=== PATIENT | male | born 1960 | race Caucasian/White ===

== ENCOUNTER 2018-03-19 17:50 | Emergency (ER) | payer OTHER ==
[~2018-03-19] VITALS: Ht 165.1 cm; Wt 56.2 kg
[2018-03-19 18:13] VITALS: BP 107/61
[2018-03-19] MEDS ORDERED: IPRATROPIUM BROM 0.5 MG/2.5ML INH SOL NEB ONE (21:30)
[2018-03-19] MEDS ORDERED: ALBUTEROL SULF 2.5 MG/0.5ML(0.5%) NEB SOLN NEB ONE (21:30)
[2018-03-19] MEDS ORDERED: cefTRIAXone SOD 1,000 MG VL IM ONE (21:30)
== END 2018-03-19 22:38 | disposition home or self-care (01) ==
LOC: ER 17:53
DX: J18.9 Pneumonia, unspecified organism (principal); J44.9 Chronic obstructive pulmonary disease, unspecified; I50.9 Heart failure, unspecified; F17.210 Nicotine dependence, cigarettes, uncomplicated; F12.90 Cannabis use, unspecified, uncomplicated; F15.90 Other stimulant use, unspecified, uncomplicated
CPT/HCPCS: 71046; 94640; 96372; 99283; J0696; J7611; J7644

== ENCOUNTER 2019-09-13 19:47 | Emergency (ER) | payer OTHER ==
[~2019-09-13] VITALS: Ht 165.1 cm; Wt 59.0 kg
[2019-09-13 20:34] VITALS: BP 128/75
== END 2019-09-13 23:07 | disposition home or self-care (01) ==
LOC: ER 19:48
DX: S06.0X1A Concussion with loss of consciousness of 30 minutes or less, initial encounter (principal); V87.8XXA Person injured in other specified noncollision transport accidents involving motor vehicle (traffic), initial encounter; Y93.89 Activity, other specified; Y92.488 Other paved roadways as the place of occurrence of the external cause; Y99.8 Other external cause status
CPT/HCPCS: 70450; 72125

== ENCOUNTER 2020-10-13 10:33 | Emergency (ER) | payer OTHER ==
[~2020-10-13] VITALS: Ht 162.6 cm; Wt 54.4 kg
[2020-10-13 11:03] VITALS: BP 137/82
== END 2020-10-13 10:50 ==
LOC: ER 10:33
DX: F10.10 Alcohol abuse, uncomplicated (principal); J44.9 Chronic obstructive pulmonary disease, unspecified; F17.210 Nicotine dependence, cigarettes, uncomplicated; F12.10 Cannabis abuse, uncomplicated; F15.10 Other stimulant abuse, uncomplicated

== ENCOUNTER 2023-05-28 08:38 | Inpatient (IN) | payer OTHER ==
[~2023-05-28] VITALS: Ht 165.1 cm; Wt 48.1 kg
[2023-05-28] VITALS (8 sets, daily range): BP systolic 115–119; BP diastolic 51–65; PULSE 78–89; RESP 17–20; TEMP 97.6–98; O2SAT 96–99
[2023-05-28] MEDS: IPRATROPIUM BROM 0.5 MG/2.5ML INH SOL HHN ONE (09:20)
[2023-05-28] MEDS: ALBUTEROL SULF 2.5 MG/0.5ML(0.5%) NEB SOLN HHN ONE (09:20)
[2023-05-28 09:49] LABS: Basophils # (auto) 0 10 ^3/uL (0-0.2); Basophils % (auto) 0.6 % (0.0-2.0); Eosinophils # (auto) 0.1 10 ^3/uL (0-0.8); Eosinophils % (auto) 1.1 % (0.0-7.0); Hematocrit 42.3 % (41.0-53.0); Hemoglobin 14.2 g/dL (13.5-17.5); Lymphocytes # (auto) 1.1 10 ^3/uL (0.4-5.4); Lymphocytes % (auto) 13.9 % (10.0-50.0); Mean Corpuscular Hemoglobin 29.4 pg (28.0-32.0); Mean Corpuscular Hgb Conc. 33.6 g/dL (32.0-36.0); Mean Corpuscular Volume 87.3 fL (80.0-100.0); Monocytes # (auto) 0.8 10 ^3/uL (0-1.3); Monocytes % (auto) 9.5 % (0.0-12.0); Neutrophils # (auto) 6.1 10 ^3/uL (1.6-8.6); Neutrophils % (auto) 74.9 % (37.0-80.0); Red Blood Cells 4.84 10^6/uL (4.5-5.90); Red Cell Distribution Width 13.9 % (11.8-14.3); White Blood Cell 8.2 10^3/uL (4.4-10.8)
[2023-05-28 10:09] LABS: Alanine Aminotransferase 50 U/L (7-40); Albumin 4.1 g/dL (3.2-4.8); Alkaline Phosphatase 87 U/L (46-116); Anion Gap 1 (5-15); Aspartate Aminotransferase 38 U/L (13-40); BUN/Creatinine Ratio 14.9 (10.0-20.0); Bilirubin, Total 0.5 mg/dL (0.2-1.0); Blood Urea Nitrogen 14 mg/dL (9-23); Calcium 9.3 mg/dL (8.5-10.1); Carbon Dioxide 30 mmol/L (20-30); Chloride 102 mmol/L (98-107); Glucose 120 mg/dL (74-106); Potassium 4.4 mmol/L (3.5-5.1); Sodium 133 mmol/L (136-145); Total Protein 6.8 g/dL (5.7-8.2)
[2023-05-28 11:24] LABS: COVID19 ANTIGEN SOFIA FIA NEGATIVE (NEGATIVE)
[2023-05-28] MEDS: methylPREDNISolone SOD SUCC 125 MG/2 ML VL IV ONE (11:45)
[2023-05-28] MEDS ORDERED: ACETAMINOPHEN 325 MG TAB PO PRN (12:00)
[2023-05-28] MEDS: PANTOPRAZOLE 40 MG/10 ML VIAL INJ IV SCH (12:00)
[2023-05-28] MEDS: methylPREDNISolone SOD SUCC 125 MG/2 ML VL IV SCH (12:00)
[2023-05-28] MEDS ORDERED: HYDROmorphone HCL 2 MG/ML VL/or syr IV PRN (12:00)
[2023-05-28] MEDS ORDERED: HYDROcodone-ACET 5/325MG TAB PO PRN (12:00)
[2023-05-28] MEDS ORDERED: DOCUSATE SOD 100 MG CAP PO PRN (12:00)
[2023-05-28 12:12] LABS: Amphetamine Screen, Urine Pos (NEGATIVE)
[2023-05-28 12:13] LABS: Base Excess 1.2 mmol/L (-2.0-2.0)
[2023-05-28 12:14] LABS: Barbiturate Scree,Urine Neg (NEGATIVE); Benzodiazephine Screen, Urine Neg (NEGATIVE); Cannabinoid Screen, Urine Neg (NEGATIVE); Cocaine Screen, Urine Neg (NEGATIVE); Opiate Scree,Urine Neg (NEGATIVE); Phencyclidine Screen, Urine Neg (NEGATIVE)
[2023-05-28] MEDS: SODIUM CHLOR 0.9% PF (SALINE LOCK) 10ML VIAL/SYR IV SCH (14:00)
[2023-05-28] MEDS: ALBUTEROL SULF 2.5 MG/0.5ML(0.5%) NEB SOLN NEB SCH (19:36)
[2023-05-28] MEDS: IPRATROPIUM BROM 0.5 MG/2.5ML INH SOL NEB SCH (19:36)
[2023-05-29] VITALS (13 sets, daily range): BP systolic 103–109; BP diastolic 56–81; PULSE 65–96; RESP 17–20; TEMP 97.9–98.2; O2SAT 93–100
[2023-05-29] MEDS: ENOXAPARIN SOD 40 MG/0.4 ML SYRINGE SC SCH (09:04)
[2023-05-30] VITALS (11 sets, daily range): BP systolic 93–136; BP diastolic 51–70; PULSE 60–87; RESP 16–20; TEMP 97.7–98.4; O2SAT 95–100
[2023-05-30 08:13] LABS: Hepatitis B Surface Antigen Negative (Negative)
[2023-05-30 09:33] LABS: Hepatitis C Antibody Reactive (Negative)
[2023-05-30] MEDS: cefTRIAXone 1GM/50ML D5W 50 ML IV SCH (13:48)
[2023-05-30] MEDS: AZITHROMYCIN 500MG/ 250ML 250 ML IV SCH (15:04)
[2023-05-31] VITALS (10 sets, daily range): BP systolic 98–120; BP diastolic 57–62; PULSE 59–75; RESP 16–20; TEMP 98–98.9; O2SAT 96–100
[2023-06-01] VITALS (11 sets, daily range): BP systolic 102–150; BP diastolic 55–85; PULSE 47–73; RESP 16–74; TEMP 36.7; O2SAT 92–100
[2023-06-01 06:06] LABS: Basophils # (auto) 0 10 ^3/uL (0-0.2); Basophils % (auto) 0.1 % (0.0-2.0); Eosinophils # (auto) 0 10 ^3/uL (0-0.8); Hematocrit 39.8 % (41.0-53.0); Hemoglobin 13.3 g/dL (13.5-17.5); Lymphocytes # (auto) 0.6 10 ^3/uL (0.4-5.4); Lymphocytes % (auto) 5.5 % (10.0-50.0); Mean Corpuscular Hgb Conc. 33.3 g/dL (32.0-36.0); Mean Corpuscular Volume 87.2 fL (80.0-100.0); Monocytes # (auto) 0.1 10 ^3/uL (0-1.3); Monocytes % (auto) 1.3 % (0.0-12.0); Neutrophils % (auto) 93.1 % (37.0-80.0); Red Blood Cells 4.57 10^6/uL (4.5-5.90); Red Cell Distribution Width 13.4 % (11.8-14.3); White Blood Cell 10.7 10^3/uL (4.4-10.8)
[2023-06-01 06:23] LABS: Alanine Aminotransferase 39 U/L (7-40); Albumin 3.2 g/dL (3.2-4.8); Alkaline Phosphatase 82 U/L (46-116); Anion Gap 5 (5-15); Aspartate Aminotransferase 15 U/L (13-40); BUN/Creatinine Ratio 23.8 (10.0-20.0); Blood Urea Nitrogen 25 mg/dL (9-23); Calcium 8.1 mg/dL (8.7-10.4); Carbon Dioxide 28 mmol/L (20-30); Chloride 103 mmol/L (98-107); Glucose 161 mg/dL (74-106); Potassium 4.3 mmol/L (3.5-5.1); Sodium 136 mmol/L (136-145)
[2023-06-01 06:24] LABS: Bilirubin, Total 0.2 mg/dL (0.2-1.0); Total Protein 5.6 g/dL (5.7-8.2)
[2023-06-01] MEDS: ONDANSETRON HCL 4 MG/2 ML VIAL IV PRN (13:01)
[2023-06-01] MEDS: CALCIUM GLUC 1,000mg/50ml-NS 50 ML IV SCH (16:15)
[2023-06-02] VITALS (9 sets, daily range): BP systolic 108–130; BP diastolic 55–69; PULSE 55–90; RESP 16–22; TEMP 97.5–98.6; O2SAT 92–100
[2023-06-02 06:24] LABS: Basophils # (auto) 0 10 ^3/uL (0-0.2); Basophils % (auto) 0.1 % (0.0-2.0); Eosinophils # (auto) 0 10 ^3/uL (0-0.8); Hematocrit 39.1 % (41.0-53.0); Hemoglobin 13.2 g/dL (13.5-17.5); Lymphocytes # (auto) 1.3 10 ^3/uL (0.4-5.4); Lymphocytes % (auto) 12.3 % (10.0-50.0); Mean Corpuscular Hemoglobin 29.1 pg (28.0-32.0); Mean Corpuscular Hgb Conc. 33.7 g/dL (32.0-36.0); Mean Corpuscular Volume 86.4 fL (80.0-100.0); Monocytes # (auto) 0.5 10 ^3/uL (0-1.3); Monocytes % (auto) 4.8 % (0.0-12.0); Neutrophils # (auto) 8.7 10 ^3/uL (1.6-8.6); Neutrophils % (auto) 82.8 % (37.0-80.0); Red Blood Cells 4.53 10^6/uL (4.5-5.90); Red Cell Distribution Width 13.5 % (11.8-14.3); White Blood Cell 10.5 10^3/uL (4.4-10.8)
[2023-06-02 06:40] LABS: Alanine Aminotransferase 32 U/L (7-40); Alkaline Phosphatase 99 U/L (46-116); Anion Gap 5 (5-15); Aspartate Aminotransferase 11 U/L (13-40); BUN/Creatinine Ratio 28.4 (10.0-20.0); Blood Urea Nitrogen 27 mg/dL (9-23); Calcium 8.1 mg/dL (8.7-10.4); Carbon Dioxide 29 mmol/L (20-30); Chloride 102 mmol/L (98-107); Glucose 121 mg/dL (74-106); Sodium 136 mmol/L (136-145)
[2023-06-02 06:41] LABS: Bilirubin, Total 0.2 mg/dL (0.2-1.0); Total Protein 5.2 g/dL (5.7-8.2)
[2023-06-02] MEDS: CALCIUM GLUC 1,000mg/50ml-NS 50 ML IV SCH (10:00)
[2023-06-03] VITALS (8 sets, daily range): BP systolic 123–142; BP diastolic 55–77; PULSE 48–97; RESP 18; TEMP 97.6–97.8; O2SAT 96–100
[2023-06-03] MEDS ORDERED: AZITTAB PO (12:05)
[2023-06-03] MEDS ORDERED: METH4PAK PO (12:05)
[2023-06-03] MEDS ORDERED: ALBUAER3 IN (12:05)
== END 2023-06-03 13:50 | disposition home or self-care (01) | DRG 140 ==
LOC: ER 08:38 → OVERFLOW 12:00 → WEST WING 18:19
PROVIDERS: ADMIT Internal Medicine; ATTEND Internal Medicine Geriatric Medicine
DX: J44.1 Chronic obstructive pulmonary disease with (acute) exacerbation (principal); J96.21 Acute and chronic respiratory failure with hypoxia; I50.9 Heart failure, unspecified; F15.10 Other stimulant abuse, uncomplicated; F17.210 Nicotine dependence, cigarettes, uncomplicated; Z20.822 Contact with and (suspected) exposure to COVID-19
CPT/HCPCS: 36415; 36600; 71046; 80053; 80307; 82805; 83880; 85025; 86803; 87340; 87426; 93005; 94640; 94644; 96374; 99291; C9113; G0378; J2405

== ENCOUNTER 2024-08-03 20:06 | Inpatient (IN) | payer OTHER ==
[~2024-08-03] VITALS: Ht 165.1 cm; Wt 53.0 kg
[~2024-08-03 20:06] MED LIST: ALBUAER3 IN; AZITTAB PO; METH4PAK PO
--- NOTE | 2024-08-03 20:37 | ED.PDOC ---
SOB-HPI HPI Comments 64 y/o M is [id number] sister for c/o shortness of breath for the last three days. Patient also states having yellow diarrhea for the last four days. Patient appears homeless however his sister says he is not. Patient uses tobacco. Sister states that he appears to be somewhat slightly confused in the last few days and weak. He does not live with her. Patient and sister are poor historians. Vitals upon ED arrival: temperature of 98.8F, pulse rate of 83, respiratory rate of 19, blood pressure of 117/61, and a SpO2 of 93%RA Past medical history: CHF, COPD, Sepsis, PNA, TBI, Hypodontia Past surgical history: partial colectomy for bowel obstruction + colostomy and reversal HPI: Poor Historian. REVIEW OF SYSTEMS: CONSTITUTIONAL: Denies acute: fever, diaphoresis, chills, HEAD: Denies acute: headache, photophobia Eyes: Denies acute: Double vision, vision loss, eye pain, eye discharge. EARS: Denies acute: tinnitus, hearing loss, ear discharge, ear pain, THROAT: Denies acute: sore throat, swelling, difficulty swallowing , pain with swallowing, change in voice. NECK: Denies acute: neck pain, neck swelling, stiff neck. HEART: Denies acute : chest pain, palpitations, LUNGS: Denies acute: wheezing, cough, hemoptysis ABDOMEN: Denies acute: abdominal pain, Nausea, Vomiting, melena , hematemesis, sahara tochezia SKIN: Denies acute: rash, redness, lesions, itchiness. EXTREMITIES: Denies acute: calf pain, numbness, tingling, weakness, denies pain in extremity. Denies acute: Low back pain. Neuro: Denies acute: focal neurological deficit, motor or sensory focal neurological deficit, tremors, seizure like activity, confusion, dizziness, loss of bowel or bladder function, cauda equina like symptoms. : Denies acute: dysuria, hematuria, flank pain, increase in urinary frequency. PSYCH: Denies acute: hallucination, suicidal ideation, homicidal ideation. PHYSICAL EXAM: General: ---[id number]-----acute distress, awake and alert. Head: normocephalic, atraumatic. Neck: supple, trachea is midline, no swelling. Throat: Normal phonation. Eyes:, no erythema, no purulent discharge, no proptosis, no icterus. Heart: regular tachycardic, no significant murmur appreciated. Lungs: Mild respiratory distress, No wheezing, bilateral rhonchi, no crackles. No stridors Abdomen: Minimal nonspecific generalized tender to palpation, non distended, soft, no guarding, no rebound, + bowel sounds. Neuro: Awake, Alert, oriented to name, self, situation, follows commands GCS=15. Speech is normal. Skin: no petechia, no purpura, no cyanosis, non-pale, not jaundice. Lower extremities: --no - Pitting edema no deformity, no focal swelling, no calf TTP. Makes eye contact. moves all four extremities. Face: no apparent facial droop. Ambulating in the ED independently. No nuchal rigidity, Kernig's sign, Brudzinski's sign, no meningeal signs. ED COURSE: Chief Complaint: Shortness of Breath Time Seen by MD: 20:20 Primary Care Provider: NONE Reviewed notes: Nurses Notes, Medications, Allergies Information Source: Patient Mode of Arrival: Ambulatory Past Medical History PAST MEDICAL HISTORY: CHF, COPD, Schizophrenia Past Medical History (Other): Hypodontia PNA Sepsis TBI Surgical History (Other): partial colectomy for bowel obstruction + colostomy and reversal Family History Family History: No family hx of HTN, Unknown Social History Smoker: Cigarettes, Greater Than 1 Pack/Day Alcohol: Rarely Drugs: Marijuana, Methamphetamine Lives In: Home Was a procedure done? Was a procedure done?: No Differential Dx Differential Diagnosis: Other (DDx include ACS, unstable angina, anxiety, PE, pneumothroax, neoplasm, cardiac ischemia, COPD, asthma, CHF, pleural effusion, tobacco abuse, pneumonia, hypoxia, hypercapnia, anemia., infection/sepsis., pulmonary edema. Asthma, Cardiac tamponade, infection.) X-Ray, Labs, Meds, VS Vital Signs Date Time Temp Pulse Resp B/P (MAP) Pulse Ox O2 Delivery O2 Flow Rate FiO2 08/03/24 21:16 109 08/03/24 20:57 115 35 93 Nasal Cannula* 2 28 08/03/24 20:57 98.7 115 35 99/53 (68) 93 98.7 08/03/24 20:17 124 08/03/24 20:10 98.0 131 24 90/60 (70) 88 98.0 08/03/24 20:10 88 Room Air* 0 21 Lab Test 08/03/24 21:46 08/03/24 21:15 08/03/24 20:17 08/03/24 20:16 Range/Units Lactic Acid Level 3.6 *H 4.8 *H 0.4-2.0 mmol/L Troponin I High Sensitivity 9 9 </=54 ng/L Influenza Type A Antigen Negative Negative Influenza Type B Antigen Negative Negative SARS-CoV-2 Antigen (Rapid) Negative NEGATIVE White Blood Count 29.2 H 4.4-10.8 10^3/uL Red Blood Count 5.16 4.5-5.90 10^6/uL Hemoglobin 14.8 13.5-17.5 g/dL Hematocrit 44.4 41.0-53.0 % Mean Corpuscular Volume 86.0 80.0-100.0 fL Mean Corpuscular Hemoglobin 28.6 28.0-32.0 pg Mean Corpuscular Hemoglobin Concent 33.3 32.0-36.0 g/dL Red Cell Distribution Width 15.0 H 11.8-14.3 % Platelet Count 283 140-450 10^3/uL Mean Platelet Volume 10.7 6.9-10.8 fL Neutrophils (%) (Auto) 37.0-80.0 % Lymphocytes (%) (Auto) 10.0-50.0 % Monocytes (%) (Auto) 0.0-12.0 % Basophils (%) (Auto) 0.0-2.0 % Neutrophils # (Auto) 1.6-8.6 10 ^3/uL Lymphocytes # (Auto) 0.4-5.4 10 ^3/uL Monocytes # (Auto) 0-1.3 10 ^3/uL Differential Total Cells Counted 100.0 100 Neutrophils % (Manual) 89 H 37.0-80.0 Band Neutrophils % (Manual) 3 Lymphocytes % (Manual) 3 L 10.0-50.0 Monocytes % (Manual) 5 0-12 Eosinophils % (Manual) 0 0-7 Basophils % (Manual) 0 0.0-2.0 Metamyelocytes % (manual) 0 Myelocytes % (Manual) 0 Promyelocytes % (Manual) 0 Blast Cells % (Manual) 0 Reactive Lymphocytes 0 Platelet Estimate Adequate Large Platelets Few Erythrocyte Sedimentation Rate 72 H 0-20 mm/hr Prothrombin Time 14.0 H 9.3-11.8 sec Prothrombin Time INR 1.36 H 0.9-1.15 Activated Partial Thromboplast Time 30.5 24.5-34.5 SEC Sodium Level 131 L 136-145 mmol/L Potassium Level 4.0 3.5-5.1 mmol/L Chloride Level 95 L 98-107 mmol/L Carbon Dioxide Level 20 20-31 mmol/L Anion Gap 16 H 5-15 Blood Urea Nitrogen 80 *H 9-23 mg/dL Creatinine 3.47 H 0.700-1.30 mg/dL Glomerular Filtration Rate Calc 19 >90 mL/min BUN/Creatinine Ratio 23.1 H 10.0-20.0 Serum Glucose 127 H 74-106 mg/dL Hemoglobin A1c 5.7 <5.7 % A1C Calcium Level 9.7 8.7-10.4 mg/dL Magnesium Level 2.4 1.6-2.6 mg/dL Total Bilirubin 0.8 0.2-1.0 mg/dL Aspartate Amino Transferase (AST) 124 H 13-40 U/L Alanine Aminotransferase (ALT) 74 H 7-40 U/L Alkaline Phosphatase 151 H 46-116 U/L Creatine Kinase 89 46-171 U/L C-Reactive Protein High Sensitivity > 20.00 H <1.0 mg/dL B-Type Natriuretic Peptide 114.26 0-100 pg/mL Total Protein 7.0 5.7-8.2 g/dL Albumin 4.0 3.2-4.8 g/dL Plasma/Serum Blood Alcohol < 3.0 <10 mg/dL Current Medications Medications (Trade) Dose Ordered Sig/Elvia Route Start Time Stop Time Status Last Admin Piperacillin Sod/ Tazobactam Sod 100 ml @ 100 mls/hr ONCE ONCE IV 08/03/24 21:00 08/03/24 21:59 DC 08/03/24 21:52 Sodium Chloride 1,000 ml @ 1,000 mls/hr Q1H ONCE IV 08/03/24 21:15 08/03/24 22:14 DC 08/03/24 21:52 Sodium Chloride 1,000 ml @ 1,000 mls/hr Q1H ONCE IV 08/03/24 22:15 08/03/24 23:14 DC 08/03/24 23:20 Sodium Chloride 1,000 ml @ 1,000 mls/hr Q1H ONCE IV 08/03/24 22:15 08/03/24 23:14 DC 08/04/24 01:00 PATIENT: DANISHA FINNEGANT: [id number]: [id number] : 1960 LOC: ER ROOM / BED: / AGE / SEX: 64 / M ADM STATUS: REG ER SERVICE 22 ORDERING PHYSICIAN: SUDHA OSBORNE DO PROCEDURE(s): HWOCT - HEAD WITHOUT CONTRAST REASON: weak, possible confusion ORDER NUMBER(s): [id number], ACCESSION NUMBER(s): [id number] EXAM: CT HEAD WITHOUT CONTRAST INDICATION: weak, possible confusion TECHNIQUE: CT of the head without intravenous contrast. Radiation Dose : 1. Head: CT Dose: CTDI volume is 5.07 mGy. Dose-length product is 1120.21 mGy*cm The dose indicators for CT are the volume Computed Tomography (CT) Dose Index (CTDIvol) and the Dose Length Product (DLP), and are measured in units of mGy and mGy-cm, respectively. These indicators are not patient dose, but values generated from the CT scanner acquisition factors. The report includes radiation exposure data for exposures received during this examination. COMPARISON: HEAD WITHOUT CONTRAST on DOS: 09/13/19 FINDINGS: There is no evidence of acute intracranial hemorrhage, extra-axial collection, mass effect, midline shift, herniation or hydrocephalus. The ventricles, sulci and cisterns are age appropriate. The duncan-white differentiation is intact. Patchy periventricular and subcortical white matter hypoattenuation is nonspecific but may be related to small vessel ischemic disease. The visualized paranasal sinuses and mastoid air cells are clear. The surrounding soft tissues and osseous structures are unremarkable. IMPRESSION: 1. No acute intracranial abnormality. Radiation optimization: All CT scans at this facility use at least one of these dose optimization techniques: automated exposure control mA and/or kV adjustment per patient size (includes targeted exams where dose is matched to clinical indication) or iterative reconstruction. ATED BY: REYNALDO CARTAGENA MD DICTATED DATE/TIME: 08/03/242103 SIGNED BY: REYNALDO CARTAGENA MD SIGNED DATE/TIME: 08/03/242103 PATIENT: VIMAL FINNEGAN ACCT: [id number] UNIT: [id number] : 1960 LOC: ER ROOM / BED: / AGE / SEX: 64 / M ADM STATUS: REG ER SERVICE 20 ORDERING PHYSICIAN: SUDHA OSBORNE DO PROCEDURE(s): ABPL - CT AB PEL WO CON-NO ORAL OR IV REASON: diarrhea, sob ORDER NUMBER(s): [id number], ACCESSION NUMBER(s): [id number] Exam: CT AB PEL WO CON-NO ORAL OR IV History: diarrhea, sob Comparison Study: None Contrast: None TECHNIQUE: Multidetector CT of abdomen and pelvis without IV contrast. Radiation Dose Information: CT Dose: CTDI volume is 46.68 mGy. Dose-length product is 1120.21 mGy*cm FINDINGS: lung bases demonstrate paraseptal emphysema possibly early interstitial lung disease there are consolidates with air bronchograms involving the left lingula in the lateral right upper lobe. Heart size is normal. There are few calcifications in the aortic annulus. The esophagus is unremarkable. Spleen appears to be within normal limits for size. Kidneys and adrenals are unremarkable. Gallbladder and liver appear to be unremarkable there are small calcifications seen in the central portion of the prostate I do not see evidence for diverticulitis or for appendicitis liver remains within normal size measures 17.7 cm in span. Patient has a significant dextro scoliosis involving the thoracolumbar spine of approximately 21 degrees. There is disc disease at L4-5 and L5-S1. Also disc disease in the lower thoracic spine.. IMPRESSION: 1. Bilateral pneumonia along with paraseptal emphysema and possibly developing interstitial lung disease ATED BY: ROVERTO ALLEN MD DICTATED DATE/TIME: 08/03/242108 SIGNED BY: ROVERTO ALLEN MD SIGNED DATE/TIME: 08/03/242108 PATIENT: VIMAL FINNEGAN ACCT: [id number] UNIT: [id number] : 1960 LOC: ER ROOM / BED: / AGE / SEX: 64 / M ADM STATUS: REG ER SERVICE 09 ORDERING PHYSICIAN: SUDHA OSBORNE DO PROCEDURE(s): CXRP - CHEST PORTABLE REASON: sob ORDER NUMBER(s): [id number], ACCESSION NUMBER(s): [id number] EXAM: XY CHEST PORTABLE TECHNIQUE: Single frontal chest radiograph CLINICAL HISTORY: sob COMPARISON: None Findings/Impression: Frontal chest radiograph demonstrates no acute osseous or superficial soft tissue abnormalities. The trachea is midline. The cardiac silhouette and mediastinum are within normal limits. Bilateral upper lung field airspace opacities. No pneumothorax or pleural effusions. ATED BY: NAKITA WEEKS DO DICTATED DATE/TIME: 08/03/242136 SIGNED BY: NAKITA WEEKS DO SIGNED DATE/TIME: 08/03/242136 Time of 1ST Reevaluation: 20:20 Reevaluation 1ST: Unchanged Time of 2ND Reevaluation: 01:28 Reevaluation 2ND: Improved Patient Education/Counseling: Diagnosis, Treatment Family Education/Counseling: Diagnosis, Treatment Comments Sepsis protocol was initiated and weight based fluid resuscitation was also ordered. Patient presented with the above HPI.---dyspnea and diarrhea---workup was initiated. patient was found with the above mentioned diagnosis. Patient had questionable history of CHF. the following medications were ordered: please refer to order lists of meds and tests obtained by myself Dr. Osborne. Patient ED course and VS have been stabilized. Patient has been reassessed in the ED and remained in a stable condition. Pertinent incidental findings were discussed with the patient and/or family. Patient/family voices understanding and is agreeable with plan. Patient has been observed in the ED adequate length of time to insure improvement/stability. Escalation of care considered: Consideration of escalation to observation or admission Patient was ADMITTED to the medicine team for further evaluation and treatment of their presentation. All the reports of any imaging studies that were ordered by myself were reviewed by myself. Departure 1 Departure Time of Disposition: 21:12 Impression: Primary Impression: Hypoxemia Additional Impressions: Sepsis Leukocytosis Diarrhea Bilateral pneumonia Acute renal failure Elevated LFTs Urinary tract infection Disposition: 09 ADMITTED INPATIENT Admit to: Tele Condition: Guarded Discharged With: Self, Relative Critical Care Note Critical Care Time?: Yes (55 min-critical care time only) Heart Score Heart Score: Heart Score Response (Comments) Value History Moderate Suspicious 1 EKG Normal 0 Age 45-64 1 Risk Factors >3 or Hx ASHD 2 Troponin Normal limit 0 Total 4 I personally scribed for SUDHA OSBORNE DO ([email or web address]) on 08/03/24 at 20:37. Electronically submitted by Marco Antonio Wallis ([email or web address]). I personally scribed for SUDHA OSBORNE DO ([email or web address]) on 08/03/24 at 23:02. Electronically submitted by Michael Cornell ([email or web address]). SUDHA OSBORNE DO Aug 03, 2024 20:37
[2024-08-03 20:46] LABS: Hematocrit 44.4 % (41.0-53.0); Hemoglobin 14.8 g/dL (13.5-17.5); Mean Corpuscular Hemoglobin 28.6 pg (28.0-32.0); Mean Corpuscular Hgb Conc. 33.3 g/dL (32.0-36.0); Platelet Count (auto) 283 10^3/uL (140-450); Red Blood Cells 5.16 10^6/uL (4.5-5.90); White Blood Cell 29.2 10^3/uL (4.4-10.8)
[2024-08-03 20:51] LABS: Basophils % (manual) 0 (0.0-2.0); Blast Cells 0; Eosinophils % (manual) 0 (0-7); Metamyelocytes % 0; Myelocytes % 0; Promyelocytes % 0; Reactive Lymphocytes 0
[2024-08-03 20:57] VITALS: PULSE 115; RESP 35; O2SAT 93
[2024-08-03 21:07] LABS: Anion Gap 16 (5-15); BUN/Creatinine Ratio 23.1 (10.0-20.0); Calcium 9.7 mg/dL (8.7-10.4); Carbon Dioxide 20 mmol/L (20-31); Creatine Kinase IFCC 89 U/L (46-171); Magnesium 2.4 mg/dL (1.6-2.6)
--- NOTE | 2024-08-03 21:07 | DVH ---
EXAM: CT HEAD WITHOUT CONTRAST INDICATION: weak, possible confusion TECHNIQUE: CT of the head without intravenous contrast. Radiation Dose : 1. Head: CT Dose: CTDI volume is 5.07 mGy. Dose-length product is 1120.21 mGy*cm The dose indicators for CT are the volume Computed Tomography (CT) Dose Index (CTDIvol) and the Dose Length Product (DLP), and are measured in units of mGy and mGy-cm, respectively. These indicators are not patient dose, but values generated from the CT scanner acquisition factors. The report includes radiation exposure data for exposures received during this examination. COMPARISON: HEAD WITHOUT CONTRAST on DOS: 09/13/19 FINDINGS: There is no evidence of acute intracranial hemorrhage, extra-axial collection, mass effect, midline s hift, herniation or hydrocephalus. The ventricles, sulci and cisterns are age appropriate. The duncan-white differentiation is intact. Patchy periventricular and subcortical white matter hypoattenuation is nonspecific but may be related to small vessel ischemic disease. The visualized paranasal sinuses and mastoid air cells are clear. The surrounding soft tissues and osseous structures are unremarkable. IMPRESSION: 1. No acute intracranial abnormality. Radiation optimization: All CT scans at this facility use at least one of these dose optimization lety hniques: automated exposure control mA and/or kV adjustment per patient size (includes targeted exam s where dose is matched to clinical indication) or iterative reconstruction.
[2024-08-03 21:08] LABS: Bilirubin, Total 0.8 mg/dL (0.2-1.0)
[2024-08-03 21:10] LABS: Band Neutrophils % (manual) 3; Lymphocytes % (manual) 3 (10.0-50.0); Monocytes % (manual) 5 (0-12); Platelet Estimate Adequate
[2024-08-03 21:11] LABS: Large Platelets FEW
--- NOTE | 2024-08-03 21:12 | DVH ---
Exam: CT AB PEL WO CON-NO ORAL OR IV History: diarrhea, sob Comparison Study: None Contrast: None TECHNIQUE: Multidetector CT of abdomen and pelvis without IV contrast. Radiation Dose Information: CT Dose: CTDI volume is 46.68 mGy. Dose-length product is 1120.21 mGy*cm FINDINGS: lung bases demonstrate paraseptal emphysema possibly early interstitial lung disease there are consol idates with air bronchograms involving the left lingula in the lateral right upper lobe. Heart size i s normal. There are few calcifications in the aortic annulus. The esophagus is unremarkable. Spleen a ppears to be within normal limits for size. Kidneys and adrenals are unremarkable. Gallbladder and li rashid appear to be unremarkable there are small calcifications seen in the central portion of the prost ate I do not see evidence for diverticulitis or for appendicitis liver remains within normal size johnathan sures 17.7 cm in span. Patient has a significant dextro scoliosis involving the thoracolumbar spine o f approximately 21 degrees. There is disc disease at L4-5 and L5-S1. Also disc disease in the lower t horacic spine.. IMPRESSION: 1. Bilateral pneumonia along with paraseptal emphysema and possibly developing interstitial lung dise ase
[2024-08-03 21:17] LABS: COVID19 ANTIGEN SOFIA FIA NEGATIVE (NEGATIVE); Rapid Influenza A Negative (Negative); Rapid Influenza B Negative (Negative)
[2024-08-03 21:20] LABS: Chloride 95 mmol/L (98-107); Glucose 127 mg/dL (74-106); Sodium 131 mmol/L (136-145)
[2024-08-03 21:21] LABS: Alanine Aminotransferase 74 U/L (7-40); Alkaline Phosphatase 151 U/L (46-116); Aspartate Aminotransferase 124 U/L (13-40); Blood Urea Nitrogen 80 mg/dL (9-23)
[2024-08-03 21:22] LABS: Lactic Acid w/Reflex 4.8 mmol/L (0.4-2.0)
[2024-08-03 21:36] LABS: Blood Alcohol 4.8 mg/dL (<10)
--- NOTE | 2024-08-03 21:39 | DVH ---
EXAM: XY CHEST PORTABLE TECHNIQUE: Single frontal chest radiograph CLINICAL HISTORY: sob COMPARISON: None Findings/Impression: Frontal chest radiograph demonstrates no acute osseous or superficial soft tissue abnormalities. The trachea is midline. The cardiac silhouette and mediastinum are within normal limits. Bilateral upper lung field airspace opacities. No pneumothorax or pleural effusions.
[2024-08-03 21:41] LABS: Erythrocyte Sedimentation Rate 72 mm/hr (0-20)
[2024-08-03 21:47] LABS: CRP High Sensitivity > 20.00 mg/dL (<1.0)
[2024-08-03] MEDS: PIPERACILLIN-TAZOB 3.375GM 100 ML IV ONE (21:52)
[2024-08-03] MEDS: SODIUM CHLORIDE 0.9% 1,000 ML IV ONE ×2 (21:52→23:20)
[2024-08-03] MEDS ORDERED: MORPHINE SULFATE INJ 2 MG/ml SYRG IV PRN (23:00)
[2024-08-03] MEDS ORDERED: ACETAMINOPHEN 325 MG TAB PO PRN (23:00)
[2024-08-03] MEDS ORDERED: ONDANSETRON HCL 4 MG/2 ML VIAL IV PRN (23:00)
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
[2024-08-04] VITALS (16 sets, daily range): BP systolic 89–115; BP diastolic 49–62; PULSE 71–106; RESP 14–32; TEMP 97.9–98.7; O2SAT 90–100
[2024-08-04 00:01] LABS: Lactic Acid w/Reflex 3.1 mmol/L (0.4-2.0)
[2024-08-04 00:08] LABS: INR 1.36 (0.9-1.15); Partial Thromboplastin Time 30.5 SEC (24.5-34.5)
[2024-08-04 00:10] LABS: Alanine Aminotransferase 63 U/L (7-40); Albumin 3.5 g/dL (3.2-4.8); Alkaline Phosphatase 131 U/L (46-116); Anion Gap 13 (5-15); Aspartate Aminotransferase 111 U/L (13-40); BUN/Creatinine Ratio 24.9 (10.0-20.0); Bilirubin, Total 0.8 mg/dL (0.2-1.0); Blood Urea Nitrogen 77 mg/dL (9-23); Calcium 8.9 mg/dL (8.7-10.4); Carbon Dioxide 20 mmol/L (20-31); Chloride 100 mmol/L (98-107); Cholesterol 67 mg/dL (< 200); Glucose 86 mg/dL (74-106); HDL Cholesterol 10 mg/dL (40-59); LDL Cholesterol 6 mg/dL (< 100); Magnesium 2.2 mg/dL (1.6-2.6); Phosphorus 5.3 mg/dL (2.4-5.1); Potassium 3.8 mmol/L (3.5-5.1); Sodium 133 mmol/L (136-145); Total Protein 6.1 g/dL (5.7-8.2); Triglycerides 94 mg/dL (< 150)
[2024-08-04 00:29] LABS: Lipase 21 U/L (12-53)
[2024-08-04 00:38] LABS: Urine Bacteria FEW /hpf (None Seen); Urine Blood 1+ /uL (Negative); Urine Clarity Turbid (Clear); Urine Color Yellow (Yellow); Urine Hyaline Cast FEW /lpf (0 - 2); Urine Mucus FEW (None Seen); Urine Protein, UAD 1+ (Negative); Urine Specific Gravity 1.021 (1.001-1.035); Urine Squamous Epithelial Cell FEW /hpf (<5); Urine Urobilinogen Normal (Negative); Urine WBC 60 /HPF (0-3); Urine WBC Clumps PRESENT /hpf (None Seen); Urine pH 5.5 (5.0-9.0)
[2024-08-04] MEDS: SODIUM CHLORIDE 0.9% 1,000 ML IV ONE ×2 (01:00→01:15)
[2024-08-04] MEDS: CEFEPIME 1GM/ 50ML 50 ML IV ONE (01:15)
[2024-08-04 01:38] LABS: Opiate Scree,Urine Neg (NEGATIVE)
[2024-08-04 01:39] LABS: Phencyclidine Screen, Urine Neg (NEGATIVE)
[2024-08-04 02:01] LABS: Amphetamine Screen, Urine Pos (NEGATIVE); Barbiturate Scree,Urine Neg (NEGATIVE); Benzodiazephine Screen, Urine Neg (NEGATIVE); Cannabinoid Screen, Urine Neg (NEGATIVE); Cocaine Screen, Urine Neg (NEGATIVE)
[2024-08-04] MEDS: SODIUM CHLORIDE 0.9% 1,000 ML IV SCH (02:23)
[2024-08-04] MEDS: LORazepam 0.5 MG TAB PO PRN (02:27)
--- NOTE | 2024-08-04 04:23 | ECG ---
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
[2024-08-04] MEDS ORDERED: IPRATROPIUM BROM 0.5 MG/2.5ML INH SOL NEB SCH (06:00)
--- NOTE | 2024-08-04 06:24 | ECG ---
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
--- NOTE | 2024-08-04 06:25 | ECG ---
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
[2024-08-04] MEDS: LEVALBUTEROL HCL 1.25 MG/3 ML NEB NEB SCH (06:40)
[2024-08-04] MEDS: IPRATROPIUM BROM 0.5 MG/2.5ML INH SOL NEB SCH (06:40)
[2024-08-04 08:17] LABS: Hematocrit 41.8 % (41.0-53.0); Hemoglobin 13.8 g/dL (13.5-17.5); Mean Corpuscular Hemoglobin 28.7 pg (28.0-32.0); Mean Corpuscular Hgb Conc. 33.1 g/dL (32.0-36.0); Mean Corpuscular Volume 86.7 fL (80.0-100.0); Platelet Count (auto) 269 10^3/uL (140-450); Red Blood Cells 4.82 10^6/uL (4.5-5.90); Red Cell Distribution Width 15.3 % (11.8-14.3); White Blood Cell 27.9 10^3/uL (4.4-10.8)
[2024-08-04 08:27] LABS: Basophils % (manual) 0 (0.0-2.0); Blast Cells 0; Eosinophils % (manual) 0 (0-7); Metamyelocytes % 0; Myelocytes % 0; Promyelocytes % 0; Reactive Lymphocytes 0
[2024-08-04 08:37] LABS: Albumin 3.7 g/dL (3.2-4.8); Anion Gap 12 (5-15); BUN/Creatinine Ratio 27.6 (10.0-20.0); Calcium 9.2 mg/dL (8.7-10.4); Chloride 103 mmol/L (98-107); Potassium 4.2 mmol/L (3.5-5.1); Total Protein 6.5 g/dL (5.7-8.2)
[2024-08-04 08:38] LABS: Alanine Aminotransferase 60 U/L (7-40); Alkaline Phosphatase 158 U/L (46-116); Aspartate Aminotransferase 106 U/L (13-40); Bilirubin, Total 0.8 mg/dL (0.2-1.0); Blood Urea Nitrogen 71 mg/dL (9-23); Carbon Dioxide 20 mmol/L (20-31); Glucose 72 mg/dL (74-106); Sodium 135 mmol/L (136-145)
[2024-08-04 09:52] LABS: Band Neutrophils % (manual) 1; Lymphocytes % (manual) 2 (10.0-50.0); Monocytes % (manual) 2 (0-12)
[2024-08-04 09:53] LABS: Platelet Estimate Adequate; RBC Morphology Normal
[2024-08-04] MEDS: ENOXAPARIN SOD 40 MG/0.4 ML SYRINGE SC SCH (10:18)
--- NOTE | 2024-08-04 10:46 | DVHPNRES ---
Progress Note Date Seen: Aug 04, 2024 Resident Creating Document: GWEN FERNÁNDEZ RESIDENT Has the PT tested + for MRSA If YES, has PT been informed?: No Medical Necessity Reason Pt with a Central, PICC or Fol: No Subjective Review of Systems This is a 64-year-old male, very poor historian which does not provide any pertinent history difficult to understand. Patient has past medical history of [place] in with no interventional procedures and schizophrenia on no medications. Patient presented to the ED with chief complaint of progressive dyspnea associated with chest pain and nonbloody diarrhea. Per patient he had approximately five episodes of diarrhea per day in the last couple of days. Upon admission, Patient denied fever/chills, shortness of breath, abdominal tenderness, or any other associated symptoms. Initial labs showed a WBC of 27.9, hemoglobin of 13.8 and a creatinine 3.47. Urine drug screen came back positive for amphetamines and liver enzymes and alkaline phosphatase were all elevated. Initial chest x-ray was showing right middle lobe opacities and left upper lobe diffuse opacities consistent with possible multifocal pneumonia. CT scan of the head was grossly unremarkable with no acute intracranial abnormalities. UA was suggesting UTI. Patient was initially started on linezolid and cefepime due to BRIANA and was admitted for further assessment and management. Patient seen and examined at bedside. Patient is alert and oriented but is not coherent , unable to provide pertinent history (very poor historian). Patient is currently coursing with multifocal pneumonia, UTI and bacteremia due to Gram- positive cocci in chains. Since the patient is a poor historian he is not able to provide a clear history but he is currently on room air with no acute complaints. We added azithromycin to current antibiotic therapy to have a more broad-spectrum coverage of atypical microorganisms as well. Patient is currently on linezolid, cefepime and azithromycin. We will keep this antibiotic regimen at this time. ROS unable to obtain due to patient been incoherent but denies any complaints at this time. Objective vital signs Vital Sign Date Time Temp Pulse Resp B/P (MAP) Pulse Ox O2 Delivery O2 Flow Rate FiO2 08/04/24 09:44 98.7 96 16 107/57 100 4.0 36 98.7 08/04/24 06:44 Nasal Cannula* Total Intake and Output 08/03/24 08/03/24 08/04/24 15:00 23:00 07:00 Intake Total 2050 ml Balance 2050 ml medications Current Medications Medications Dose Ordered Sig/Elvia Route Start Time Stop Time Status Last Admin Dose Admin Lorazepam 0.5 mg Q6HP PRN PO 08/03/24 23:00 08/04/24 02:27 0.5 MG Acetaminophen 650 mg Q6HP PRN PO 08/03/24 23:00 Ondansetron HCl 4 mg Q4HP PRN IV 08/03/24 23:00 Morphine Sulfate 2 mg Q4HPRN PRN IV 08/03/24 23:00 Enoxaparin Sodium 40 mg DAILY SC 08/04/24 10:00 08/04/24 10:18 40 MG Cefepime HCl 50 ml @ 12.5 mls/hr DAILY IV 08/05/24 10:00 Linezolid 300 ml @ 150 mls/hr Q12HR IV 08/04/24 10:00 Sodium Chloride 1,000 ml @ 100 mls/hr Q10H IV 08/04/24 01:15 08/04/24 02:23 100 MLS/HR Levalbuterol HCl 0.625 mg Q6HR NEB 08/04/24 06:00 08/04/24 06:40 0.625 MG Ipratropium [place] 0.5 mg Q6HR NEB 08/04/24 06:15 08/04/24 06:40 0.5 MG Azithromycin 250 ml @ 125 mls/hr DAILY@1200 IV 08/04/24 12:00 Examination Physical Examination General: Patient alert and oriented but is not coherent. poor historian. Patient following commands. HEENT: Normocephalic, atraumatic, moist mucous membranes Respiratory/pulmonary: There are bilateral lung crackles in both vasquez. No wheezes at this time. Cardiovascular: Normal heart sounds S1 and S2 with no associated murmurs Abdomen: Abdomen nondistended, there is no pain to palpation in any of the abdominal quadrants, no palpable masses. Extremities: There is no peripheral edema present at the lower extremities. Peripheral Pulses: 3+ Radial (R). 3+ Radial (L). 3+ Dorsalis pedis (R). 3+ Dorsalis pedis(L) Skin: No rashes or pruritus, there is no sacral edema present at this time. Neurological: unable to evaluate completely due to poor cooperation from the patient. laboratory and microbiology Laboratory Tests 08/04/24 06:47 Test 08/04/24 06:47 Range/Units Serum Glucose 72 L 74-106 mg/dL Microbiology Date/Time Source Procedure Growth Status 08/03/24 21:16 Blood Blood Culture - Preliminary Resulted Problem List/Assessment/Plan Problem List/Assessment/Plan Assessment/plan Acute metabolic/toxic encephalopathy in the setting of sepsis and amphetamine use -urine drug screen came back positive for amphetamines -patient is currently on sepsis -CT of the head without contrast came back grossly unremarkable -ammonia levels were <10 Sepsis due to Gram-positive/Gram-negative pneumonia, UTI and bacteremia Acute hypoxic respiratory failure due to Gram-positive/Gram-negative bacterial pneumonia Multifocal pneumonia Possible underlying interstitial lung disease Acute gram positive cocci bacteremia Acute UTI -initial WBC was 27.9, patient was hypotensive and on acute distress. -chest x-ray showed right middle lobe opacities and left upper lobe diffuse opacities which could be due to multifocal pneumonia -blood culture came back showing Gram-positive cocci in chains -UA suggestive of UTI -patient is currently on room air -continue IV linezolid and cefepime -start IV azithromycin to cover for atypical microorganisms -ordered blood, sputum cultures -ordered MRSA screen BRIANA due to vasomotor nephropathy in the setting of sepsis -creatinine initially was 3.47, currently improving. Cr 2.57 -continue IV fluids at 100 cc/hour -monitor kidney function Acute transaminitis possible in the setting of sepsis -AST 106, ALT 60, alkaline phosphatase 158 -ordered liver ultrasound -monitor liver enzymes Chronic drug abuser -UDS came back positive for amphetamines -counseled on drug cessation for >8min Hx of schizophrenia -On no medication, will f/u with psych as outpatient Goals of care discussed with the patient at bedside for >30min, FULL CODE Plan discussed with Dr. Douglas Plan discussed with: Patient My Orders My Orders Orders - GWEN FERNÁNDEZ Procedure Category Date Status Time Lactic Acid W/ Reflex LAB 08/04/24 Logged Order 07:09 Stool Occult Blood LAB 08/04/24 Logged 09:08 LIVER US 08/04/24 Taken 09:11 Azithromycin 500mg/ PHA 08/04/24 In Process 250ml (Zithromax 50 12:00 Cardiac DIET 08/04/24 Verified Diet-2gna,Lofat,Lochol Lunch Date of Service: Aug 04, 2024 Billing Provider: JODI DOUGLAS MD Common Visit Codes: [id number] INP/OBS CARE(HIGH) GWEN FERNÁNDEZ RESIDENT Aug 04, 2024 10:46 JODI DOUGLAS MD Aug 04, 2024 21:34
[2024-08-04] MEDS: LINEZOLID 600MG/300ML 300 ML IV SCH (10:51)
--- NOTE | 2024-08-04 11:11 | DVH ---
INDICATION: R/O biliary dilation or liver abn TECHNIQUE: Multiple real-time sonographic images were obtained of the right upper quadrant. COMPARISON: None FINDINGS: The liver demonstrates heterogeneous echotexture without focal mass lesions. The liver jack ures 17cm. There is no intrahepatic or extrahepatic ductal dilatation. CBD not visualized. The gallbladder is without evidence of stone or sludge. The gallbladder wall measures 1.3 mm and is within normal limits. The right kidney measures 10 cm. The right kidney is normal in contour, size, and shape. The echogen icity is normal. There is no hydronephrosis. The pancreas is not well visualized due to overlying bowel gas. IMPRESSION: No sonographic evidence of gallstones or acute cholecystitis. Hepatic steatosis/hepatomegaly
--- NOTE | 2024-08-04 12:49 | DVHSR ---
APPROVED REPORT EXAM: Two-dimensional and M-mode echocardiogram with Doppler and color Doppler. Blood Pressure: 94/50 mmHg INDICATION Acute Respiratory failure RISK FACTORS Height: 5'5", Weight: 117 DIMENSIONS LVDd4.4 (3.8-5.7cm)LA (2D)3.5 (1.9-4.0cm)Aortic Root3.0 (2.0-3.7cm) LVDs3.2 (2.5-4.0cm)LA (MM) (1.9-4.0cm)Aortic Cusp Exc1.9 (1.5-2.0cm) EF (%) 53.0 (55-70%)Rt. Atrium3.5 (1.9-4.0cm)Asc. Aorta2.9 cm IVSd0.6 (0.7-1.1cm)RV (D) (1.8-2.4cm) PWd0.8 (0.7-1.1cm) Mitral Valve MitralMitral Stenosis E/A ratio0.02D MVAcm2 Aortic Valve Aortic ValveAortic Stenosis V10.94m/Ana Mean GR.3mmHg V21.20m/Ana Peak GR.6mmHg LVOT Diameter2.0 (1.8-2.4cm)Doppler AVA2.46cm2 LEFT VENTRICLE LVEF 50-55% , normal function Other Information Quality : Technically LimitedRhythm : Technically limited study due to pt confused and lying on right side. Conclusion LVEF 50-55% , normal function Normal right ventricular function No significant valve disease
--- NOTE | 2024-08-04 13:04 | DVHPN2 ---
Reviewed: Care Plan, H&P, Labs, Medications, Previous Orders, Radiology Changes from previous H/P or p: No Changes Objective Vitals Vital Signs Date Time Temp Pulse Resp B/P (MAP) Pulse Ox O2 Delivery O2 Flow Rate FiO2 08/04/24 11:49 105 18 98 08/04/24 09:44 98.7 107/57 4.0 36 98.7 08/04/24 06:44 Nasal Cannula* Intake/Output Intake and Output 08/04/24 07:00 Intake Total 2050 ml Balance 2050 ml Intake Oral 0 ml IV Total 2050 ml # Bowel Movements 2 Medications Current Medications Medications Dose Ordered Sig/Elvia Route Start Time Stop Time Status Last Admin Dose Admin Lorazepam 0.5 mg Q6HP PRN PO 08/03/24 23:00 08/04/24 02:27 0.5 MG Acetaminophen 650 mg Q6HP PRN PO 08/03/24 23:00 Ondansetron HCl 4 mg Q4HP PRN IV 08/03/24 23:00 Morphine Sulfate 2 mg Q4HPRN PRN IV 08/03/24 23:00 Enoxaparin Sodium 40 mg DAILY SC 08/04/24 10:00 08/04/24 10:18 40 MG Cefepime HCl 50 ml @ 12.5 mls/hr DAILY IV 08/05/24 10:00 Linezolid 300 ml @ 150 mls/hr Q12HR IV 08/04/24 10:00 08/04/24 10:51 150 MLS/HR Sodium Chloride 1,000 ml @ 100 mls/hr Q10H IV 08/04/24 01:15 08/04/24 02:23 100 MLS/HR Levalbuterol HCl 0.625 mg Q6HR NEB 08/04/24 06:00 08/04/24 11:37 0.625 MG Ipratropium [place] 0.5 mg Q6HR NEB 08/04/24 06:15 08/04/24 11:37 0.5 MG Azithromycin 250 ml @ 125 mls/hr DAILY@1200 IV 08/04/24 12:00 Laboratory Results Laboratory Tests 08/04/24 06:47 Chemistry Test 08/03/24 20:16 08/03/24 23:29 08/04/24 06:47 Albumin 4.0 g/dL (3.2-4.8) 3.5 g/dL (3.2-4.8) 3.7 g/dL (3.2-4.8) Calcium Level 9.7 mg/dL (8.7-10.4) 8.9 mg/dL (8.7-10.4) 9.2 mg/dL (8.7-10.4) Magnesium Level 2.4 mg/dL (1.6-2.6) 2.2 mg/dL (1.6-2.6) Total Protein 7.0 g/dL (5.7-8.2) 6.1 g/dL (5.7-8.2) 6.5 g/dL (5.7-8.2) Phosphorus Level 5.3 mg/dL (2.4-5.1) H Coagulation Test 08/03/24 20:16 Prothrombin Time 14.0 sec (9.3-11.8) H Prothrombin Time INR 1.36 (0.9-1.15) H Activated Partial Thromboplast Time 30.5 SEC (24.5-34.5) Lipid panel Test 08/03/24 23:29 Cholesterol Level 67 mg/dL (< 200) HDL Cholesterol 10 mg/dL (40-59) L Lipase 21 U/L (12-53) Triglycerides Level 94 mg/dL (< 150) Cardiac Markers Test 08/03/24 20:16 B-Type Natriuretic Peptide 114.26 pg/mL (0-100) LFT Test 08/03/24 20:16 08/03/24 23:29 08/04/24 06:47 Alanine Aminotransferase (ALT) 74 U/L (7-40) H 63 U/L (7-40) H 60 U/L (7-40) H Alkaline Phosphatase 151 U/L (46-116) H 131 U/L (46-116) H 158 U/L (46-116) H Aspartate Amino Transferase (AST) 124 U/L (13-40) H 111 U/L (13-40) H 106 U/L (13-40) H Total Bilirubin 0.8 mg/dL (0.2-1.0) 0.8 mg/dL (0.2-1.0) 0.8 mg/dL (0.2-1.0) HgA1c, TSH Test 08/03/24 20:16 08/03/24 23:29 Hemoglobin A1c 5.7 % A1C (<5.7) Thyroid Stimulating Hormone (TSH) 1.61 uIU/mL (0.55-4.78) Urinalysis Test 08/04/24 00:07 Urine Color Yellow (Yellow) Urine Clarity Turbid (Clear) H Urine pH 5.5 (5.0-9.0) Urine Specific [place] 1.021 (1.001-1.035) Urine Protein 1+ (Negative) H Urine Ketones Trace (Negative) Urine Blood 1+ /uL (Negative) H Urine Nitrite Negative (Negative) Urine Bilirubin Negative (Negative) Urine Urobilinogen Normal mg/dL (Negative) Urine Leukocyte Esterase 2+ /uL (Negative) Urine RBC 2 /hpf (0 - 3) Urine WBC Clumps Present /hpf (None Seen) Urine Microscopic WBC 60 /HPF (0-3) H Urine Squamous Epithelial Cells Few /hpf (<5) Urine Bacteria Few /hpf (None Seen) H Urine Hyaline Casts Few /lpf (0 - 2) Urine Granular Casts Mod /lpf (0) Urine Mucus Few (None Seen) Urine Glucose Normal mg/dL (Normal) Microbiology Microbiology Date/Time Source Procedure Growth Status 08/03/24 21:16 Blood Blood Culture - Preliminary Resulted Labs and/or images reviewed: Labs reviewed by me, Image(s) reviewed by me Assessment/Plan Assessment/Plan COPD exacerbation Acute on chronic hypoxic respiratory failure Methamphetamine use Plan discussed with: Patient Date of Service: Aug 04, 2024 Billing Provider: LILIYA VELAZQUEZ MD Common Visit Codes: [id number] INP/OBS CARE(HIGH) LILIYA VELAZQUEZ MD Aug 04, 2024 13:04
[2024-08-04] MEDS: AZITHROMYCIN 500MG/ 250ML 250 ML IV SCH (15:44)
[2024-08-04] MEDS: NICOTINE 14 MG/24HR TOPICAL PATCH TD ONE (17:30)
[2024-08-04] MEDS: LORazepam 0.5 MG TAB PO ONE (21:36)
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
[2024-08-05] VITALS (18 sets, daily range): BP systolic 112–133; BP diastolic 54–74; PULSE 77–100; RESP 18–28; TEMP 97.3–99.4; O2SAT 90–100
[2024-08-05 06:28] LABS: Hematocrit 36.8 % (41.0-53.0); Hemoglobin 12.3 g/dL (13.5-17.5); Mean Corpuscular Hemoglobin 28.6 pg (28.0-32.0); Mean Corpuscular Hgb Conc. 33.4 g/dL (32.0-36.0); Mean Corpuscular Volume 85.6 fL (80.0-100.0); Platelet Count (auto) 197 10^3/uL (140-450); White Blood Cell 20.6 10^3/uL (4.4-10.8)
[2024-08-05 06:34] LABS: Band Neutrophils % (manual) 0; Basophils % (manual) 0 (0.0-2.0); Blast Cells 0; Eosinophils % (manual) 0 (0-7); Metamyelocytes % 0; Myelocytes % 0; Promyelocytes % 0; Reactive Lymphocytes 0
[2024-08-05 07:01] LABS: Lymphocytes % (manual) 4 (10.0-50.0); Monocytes % (manual) 1 (0-12)
[2024-08-05 07:02] LABS: Platelet Estimate Adequate
[2024-08-05 07:40] LABS: Anion Gap 12 (5-15); Calcium 8.7 mg/dL (8.7-10.4); Carbon Dioxide 21 mmol/L (20-31); Chloride 105 mmol/L (98-107); Glucose 90 mg/dL (74-106); Sodium 138 mmol/L (136-145)
[2024-08-05 07:41] LABS: Bilirubin, Total 0.8 mg/dL (0.2-1.0)
[2024-08-05 07:48] LABS: Alanine Aminotransferase 44 U/L (7-40); Albumin 3.1 g/dL (3.2-4.8); Alkaline Phosphatase 195 U/L (46-116); Aspartate Aminotransferase 87 U/L (13-40); Blood Urea Nitrogen 66 mg/dL (9-23); Potassium 3.4 mmol/L (3.5-5.1); Total Protein 5.6 g/dL (5.7-8.2)
[2024-08-05] MEDS: NICOTINE 14 MG/24HR TOPICAL PATCH TD SCH (10:00)
[2024-08-05] MEDS: SODIUM CHLORIDE 0.9% 1,000 ML IV SCH (10:05)
--- NOTE | 2024-08-05 10:38 | DVHPNRES ---
Progress Note Date Seen: Aug 05, 2024 Resident Creating Document: GWEN FERNÁNDEZ RESIDENT Has the PT tested + for MRSA If YES, has PT been informed?: No Medical Necessity Reason Pt with a Central, PICC or Fol: No Subjective Review of Systems This is a 64-year-old male, very poor historian which does not provide any pertinent history difficult to understand. Patient has past medical history of [place] in with no interventional procedures and schizophrenia on no medications. Patient presented to the ED with chief complaint of progressive dyspnea associated with chest pain and nonbloody diarrhea. Per patient he had approximately five episodes of diarrhea per day in the last couple of days. Upon admission, Patient denied fever/chills, shortness of breath, abdominal tenderness, or any other associated symptoms. Initial labs showed a WBC of 27.9, hemoglobin of 13.8 and a creatinine 3.47. Urine drug screen came back positive for amphetamines and liver enzymes and alkaline phosphatase were all elevated. Initial chest x-ray was showing right middle lobe opacities and left upper lobe diffuse opacities consistent with possible multifocal pneumonia. CT scan of the head was grossly unremarkable with no acute intracranial abnormalities. UA was suggesting UTI. Patient was initially started on linezolid and cefepime due to BRIANA and was admitted for further assessment and management. Patient seen and examined at bedside. Patient is a poor historian and non cooperative but was is lying calm on bed. Patient still requiring 3 L of oxygen through nasal cannula but is not on significant respiratory distress at this time. Patient is difficult to understand and communicate but denies chest pain, fever/chills, abdominal tenderness or any other symptoms at this time. His WBC today is still significantly elevated at 20.6 but is decreasing compared to admission. Liver ultrasound was performed showing hepatic steatosis with hepatomegaly. We will continue the patient on IV linezolid, cefepime and azithromycin with a NS at 75 cc/hour. Patient is hemodynamically stable at this time. ROS unable to obtain due to patient's poor cooperative and poor historian. Objective vital signs Vital Sign Date Time Temp Pulse Resp B/P (MAP) Pulse Ox O2 Delivery O2 Flow Rate FiO2 08/05/24 06:19 90 22 99 08/05/24 06:11 Nasal Cannula 3.0 08/05/24 06:11 32 08/05/24 05:00 97.3 124/56 (78) 97.3 Total Intake and Output 08/04/24 08/04/24 08/05/24 15:00 23:00 07:00 Intake Total 760 ml 1000 ml Output Total 800 ml 860 ml Balance -40 ml 140 ml medications Current Medications Medications Dose Ordered Sig/Elvia Route Start Time Stop Time Status Last Admin Dose Admin Lorazepam 0.5 mg Q6HP PRN PO 08/03/24 23:00 08/04/24 02:27 0.5 MG Acetaminophen 650 mg Q6HP PRN PO 08/03/24 23:00 Ondansetron HCl 4 mg Q4HP PRN IV 08/03/24 23:00 Morphine Sulfate 2 mg Q4HPRN PRN IV 08/03/24 23:00 Enoxaparin Sodium 40 mg DAILY SC 08/04/24 10:00 08/05/24 10:01 40 MG Cefepime HCl 50 ml @ 12.5 mls/hr DAILY IV 08/05/24 10:00 Linezolid 300 ml @ 150 mls/hr Q12HR IV 08/04/24 10:00 08/05/24 10:01 150 MLS/HR Levalbuterol HCl 0.625 mg Q6HR NEB 08/04/24 06:00 08/05/24 06:11 0.625 MG Ipratropium [place] 0.5 mg Q6HR NEB 08/04/24 06:15 08/05/24 06:11 0.5 MG Azithromycin 250 ml @ 125 mls/hr DAILY@1200 IV 08/04/24 12:00 08/04/24 15:44 125 MLS/HR Nicotine 1 patch DAILY TD 08/05/24 10:00 Sodium Chloride 1,000 ml @ 75 mls/hr [id number] IV 08/04/24 22:15 08/05/24 10:05 75 MLS/HR Examination Physical Examination General: Patient alert and oriented but is not coherent. poor historian. Patient following commands. HEENT: Normocephalic, atraumatic, moist mucous membranes Respiratory/pulmonary: There are bilateral lung crackles in both vasquez. No wheezes at this time. Cardiovascular: Normal heart sounds S1 and S2 with no associated murmurs Abdomen: Abdomen nondistended, there is no pain to palpation in any of the abdominal quadrants, no palpable masses. Extremities: There is no peripheral edema present at the lower extremities. Peripheral Pulses: 3+ Radial (R). 3+ Radial (L). 3+ Dorsalis pedis (R). 3+ Dorsalis pedis(L) Skin: No rashes or pruritus, there is no sacral edema present at this time. Neurological: unable to evaluate completely due to poor cooperation from the patient. laboratory and microbiology Laboratory Tests 08/05/24 04:32 Test 08/05/24 04:32 Range/Units Serum Glucose 90 74-106 mg/dL Microbiology Date/Time Source Procedure Growth Status 08/03/24 21:16 Blood Blood Culture - Preliminary Resulted Problem List/Assessment/Plan Problem List/Assessment/Plan Assessment/plan Acute metabolic/toxic encephalopathy in the setting of sepsis and amphetamine use -urine drug screen came back positive for amphetamines -patient is currently on sepsis -CT of the head without contrast came back grossly unremarkable -ammonia levels were <10 Sepsis due to Gram-positive/Gram-negative pneumonia, UTI and bacteremia Acute hypoxic respiratory failure due to Gram-positive/Gram-negative bacterial pneumonia Multifocal pneumonia Possible underlying interstitial lung disease Acute gram positive cocci bacteremia Acute UTI -initial WBC was 27.9, patient was hypotensive and on acute distress. -chest x-ray showed right middle lobe opacities and left upper lobe diffuse opacities which could be due to multifocal pneumonia -blood culture came back showing Gram-positive cocci in chains -UA suggestive of UTI -patient is currently on room air -continue IV linezolid and cefepime -Continue IV azithromycin to cover for atypical microorganisms -ordered blood cultures we will came back showing Gram-positive cocci in chains -sputum cultures still pending -ordered MRSA screen was still pending BRIANA due to vasomotor nephropathy in the setting of sepsis -creatinine initially was 3.47, currently improving. Cr 1.57 -continue IV fluids at 75 cc/hour -monitor kidney function Acute transaminitis possible in the setting of sepsis -AST 106, ALT 60, alkaline phosphatase 158 -ordered liver ultrasound -monitor liver enzymes Chronic drug abuser -UDS came back positive for amphetamines -counseled on drug cessation for >8min Hx of schizophrenia -On no medication, will f/u with psych as outpatient Goals of care discussed with the patient at bedside for >30min, FULL CODE Plan discussed with Dr. Douglas Plan discussed with: Patient My Orders My Orders Orders - GWEN FERNÁNDEZ Procedure Category Date Status Time Nicotine 14mg/24hr PHA 08/05/24 In Process (Nicoderm 14mg/24hr) 10:00 Acute Hepatitis Panel LAB 08/04/24 In Process 18:05 Communication Order ORDERS 08/04/24 Transmitted 18:05 Sodium Chloride 0.9% PHA 08/04/24 In Process 22:15 Potassium Effervesent PHA 08/05/24 In Process Tab (Klor-Con/Ef) 10:30 Date of Service: Aug 05, 2024 Billing Provider: JODI DOUGLAS MD Common Visit Codes: 48838-[id number] INP/OBS CARE(HIGH) GWEN FERNÁNDEZ RESIDENT Aug 05, 2024 10:38 JODI DOUGLAS MD Aug 05, 2024 21:09
[2024-08-05 11:46] LABS: Hepatitis A Ab IgM Negative; Hepatitis B Core IgM Negative (Negative); Hepatitis B Surface Antigen Negative (Negative)
[2024-08-05 11:50] LABS: Hepatitis C Antibody Reactive (Negative)
[2024-08-05] MEDS: CEFEPIME 1GM/ 50ML 50 ML IV SCH (12:08)
[2024-08-05] MEDS: POTASSIUM EFFERVESENT TAB 25 MEQ PO ONE (12:17)
--- NOTE | 2024-08-05 21:52 | DVHPN2 ---
Progress Note - Dictate Date Seen: Aug 05, 2024 Has the PT tested + for MRSA If YES, has PT been informed?: No Medical Necessity Reason Pt with a Central, PICC or Fol: No Subjective Patient seen and examined at bedside. Remains on supplemental oxygen Overnight events reviewed. vital signs Vital Sign Date Time Temp Pulse Resp B/P (MAP) Pulse Ox O2 Delivery O2 Flow Rate FiO2 08/05/24 20:53 98.4 85 24 117/55 (75) 96 98.4 08/05/24 18:30 Nasal Cannula* 3 32 Total Intake and Output 08/04/24 08/04/24 08/05/24 15:00 23:00 07:00 Intake Total 760 ml 1000 ml Output Total 800 ml 860 ml Balance -40 ml 140 ml medications Current Medications Medications Dose Ordered Sig/Elvia Route Start Time Stop Time Status Last Admin Dose Admin Lorazepam 0.5 mg Q6HP PRN PO 08/03/24 23:00 08/04/24 02:27 0.5 MG Acetaminophen 650 mg Q6HP PRN PO 08/03/24 23:00 Ondansetron HCl 4 mg Q4HP PRN IV 08/03/24 23:00 Morphine Sulfate 2 mg Q4HPRN PRN IV 08/03/24 23:00 Enoxaparin Sodium 40 mg DAILY SC 08/04/24 10:00 08/05/24 10:01 40 MG Cefepime HCl 50 ml @ 12.5 mls/hr DAILY IV 08/05/24 10:00 08/05/24 12:08 12.5 MLS/HR Linezolid 300 ml @ 150 mls/hr Q12HR IV 08/04/24 10:00 08/05/24 10:01 150 MLS/HR Levalbuterol HCl 0.625 mg Q6HR NEB 08/04/24 06:00 08/05/24 18:30 0.625 MG Ipratropium [place] 0.5 mg Q6HR NEB 08/04/24 06:15 08/05/24 18:30 0.5 MG Azithromycin 250 ml @ 125 mls/hr DAILY@1200 IV 08/04/24 12:00 08/05/24 12:16 125 MLS/HR Nicotine 1 patch DAILY TD 08/05/24 10:00 Sodium Chloride 1,000 ml @ 75 mls/hr [id number] IV 08/04/24 22:15 08/05/24 10:05 75 MLS/HR objective Gen.: Patient lying in bed in no apparent distress. On supplemental oxygen. Head: Normocephalic, atraumatic. Eyes: EOMI/PERRLA. Ears: Normal hearing. Normal anatomy. Neck/trachea: Trachea midline, supple. Nose: Normal external anatomy. Mouth: Moist mucous membranes. Chest: Decreased air entry bilaterally. No wheezing or rhonchi. Cardiovascular: Positive S1, positive S2. Regular rate and rhythm. Abdomen: Positive bowel sounds in all 4 quadrants. Soft, non-tender, non- distended. : Deferred. Rectal: Deferred. Skin: Warm, dry. Intact. Extremities: 2+ radial pulses bilaterally. No lower extremity edema. Neuro: Awake, alert, oriented x3. No gross motor or sensory deficits. Cranial nerves II through XII intact. Gait not assessed. laboratory and microbiology Laboratory Tests 08/05/24 04:32 Test 08/05/24 04:32 Range/Units Serum Glucose 90 74-106 mg/dL Assessment/Plan Impression: Acute hypoxic respiratory failure Dependence on supplemental oxygen Metabolic encephalopathy 2/2 sepsis Sepsis 2/2 pneumonia Pneumonia, likely gram negative Chronic obstructive pulmonary disease Pulmonary cachexia, BMI 19.6 Urinary tract infection Nicotine dependence Events: Remains on supplemental oxygen, 3 LPM NC Taper O2 as tolerated Patient is confused - on 1:1 for safety. Continue bronchodilators Continue antibiotics WBC elevated at 20.6 IV fluids with NS Monitor renal function Labs and imaging reviewed. Rest of plan as noted below. Plan: Supplemental oxygen Titrate to keep O2 sats above 92%. Continue bronchodilators. Continue antibiotics Follow up cultures Incentive spirometry Monitor renal function. Monitor electrolytes. Supplement as necessary. Monitor ins and outs. Smoking cessation education. DVT prophylaxis - Lovenox. Prognosis: Poor given patient's multiple co-morbidities. Rest of plan per hospitalist and other consultants. Thank you, Dr. Steele, for allowing me to participate in this patient's care. Further recommendations will depend on the patient's clinical course. Please do not hesitate to contact me if you have any questions or concerns. This medical document was created using an electronic medical record system with [employer] dictation system. Although these documentations are being carefully reviewed, there may still be some phonetic and typographical changes. The errors are purely typographical, due to imperfection on the software program, and do not reflect any compromise in the patient's medical care. Dietary Evaluation Review Comments: 1) Ensure Enlive 240ml TID (ordered per [facility] protocol) 2) Continue current plan of care Expected Outcomes/Goals: To meet >75% estimated needs Fu 3-5 days Plan discussed with: Patient, Other (JUDI Edward) GAY AMBROCIO MD Aug 05, 2024 21:52
[2024-08-06] VITALS (12 sets, daily range): BP systolic 118–133; BP diastolic 61–79; PULSE 76–96; RESP 16–26; TEMP 97.6–100.9; O2SAT 93–99
--- NOTE | 2024-08-06 06:39 | DVH ---
EXAM: XR Chest, 1 View CLINICAL INDICATION: reeval TECHNIQUE: Frontal view of the chest. COMPARISON: XY CHEST PORTABLE on DOS: 08/03/24, XR Chest dated 08/03/2024 FINDINGS: LUNGS AND PLEURAL SPACES: Stable patchy airspace disease of both lungs. No consolidation. No pneu mothorax. HEART: Unremarkable. No cardiomegaly. MEDIASTINUM: Unremarkable. Normal mediastinal contour. BONES/JOINTS: Unremarkable. No acute fracture. OTHER FINDINGS: . IMPRESSION: Stable patchy airspace disease of both lungs.
--- NOTE | 2024-08-06 10:28 | DVHPNRES ---
Progress Note Date Seen: Aug 06, 2024 Resident Creating Document: GWEN FERNÁNDEZ RESIDENT Has the PT tested + for MRSA If YES, has PT been informed?: No Medical Necessity Reason Pt with a Central, PICC or Fol: No Subjective Review of Systems This is a 64-year-old male, very poor historian which does not provide any pertinent history difficult to understand. Patient has past medical history of [place] in with no interventional procedures and schizophrenia on no medications. Patient presented to the ED with chief complaint of progressive dyspnea associated with chest pain and nonbloody diarrhea. Per patient he had approximately five episodes of diarrhea per day in the last couple of days. Upon admission, Patient denied fever/chills, shortness of breath, abdominal tenderness, or any other associated symptoms. Initial labs showed a WBC of 27.9, hemoglobin of 13.8 and a creatinine 3.47. Urine drug screen came back positive for amphetamines and liver enzymes and alkaline phosphatase were all elevated. Initial chest x-ray was showing right middle lobe opacities and left upper lobe diffuse opacities consistent with possible multifocal pneumonia. CT scan of the head was grossly unremarkable with no acute intracranial abnormalities. UA was suggesting UTI. Patient was initially started on linezolid and cefepime due to BRIANA and was admitted for further assessment and management. Patient seen and examined at bedside. Patient poor historian and non cooperative. Patient refused the labs this morning. Patient is hard to understand what he is saying but is complaining of mild shortness of breath and very mild chest discomfort. The patient is currently on 3 L of oxygen through nasal cannula. We will stop IV fluids at this time. Upon my examination, patient still having bilateral mild crackles on both lung vasquez. We will continue the patient on linezolid, cefepime and azithromycin. Patient still requiring oxygen and we are being unable to titrated down at this time. Otherwise, the patient denies fever/chills, or any other concerns or complaints at this time. ROS Constitutional: Denies weight loss, fever and chills. HEENT: Denies changes in vision and hearing. Respiratory: Denies shortness of breath and cough Cardiovascular: Denies chest discomfort or palpitations GI: Denies abdominal pain, nausea, vomiting and diarrhea. : Denies dysuria and urinary frequency. Musculoskeletal: Denies myalgias and joint pain Skin: Denies rash and pruritus. Neurological: Denies dizziness, headache, vision or hearing problems Objective vital signs Vital Sign Date Time Temp Pulse Resp B/P (MAP) Pulse Ox O2 Delivery O2 Flow Rate FiO2 08/06/24 06:20 96 Nasal Cannula* 3 32 08/06/24 06:20 91 16 08/06/24 04:52 100.9 118/76 (90) 100.9 Total Intake and Output 08/05/24 08/05/24 08/06/24 15:00 23:00 07:00 Intake Total 550 ml 1485 ml 1880 ml Output Total 650 ml 850 ml Balance 550 ml 835 ml 1030 ml medications Current Medications Medications Dose Ordered Sig/Elvia Route Start Time Stop Time Status Last Admin Dose Admin Lorazepam 0.5 mg Q6HP PRN PO 08/03/24 23:00 08/04/24 02:27 0.5 MG Acetaminophen 650 mg Q6HP PRN PO 08/03/24 23:00 Ondansetron HCl 4 mg Q4HP PRN IV 08/03/24 23:00 Morphine Sulfate 2 mg Q4HPRN PRN IV 08/03/24 23:00 Enoxaparin Sodium 40 mg DAILY SC 08/04/24 10:00 08/05/24 10:01 40 MG Cefepime HCl 50 ml @ 12.5 mls/hr DAILY IV 08/05/24 10:00 08/06/24 08:48 12.5 MLS/HR Linezolid 300 ml @ 150 mls/hr Q12HR IV 08/04/24 10:00 08/06/24 08:48 150 MLS/HR Levalbuterol HCl 0.625 mg Q6HR NEB 08/04/24 06:00 08/06/24 06:20 0.625 MG Ipratropium [place] 0.5 mg Q6HR NEB 08/04/24 06:15 08/06/24 06:20 0.5 MG Azithromycin 250 ml @ 125 mls/hr DAILY@1200 IV 08/04/24 12:00 08/05/24 12:16 125 MLS/HR Nicotine 1 patch DAILY TD 08/05/24 10:00 Examination Physical Examination General: Patient alert and oriented but is not coherent. poor historian. Patient following commands. HEENT: Normocephalic, atraumatic, moist mucous membranes Respiratory/pulmonary: There are still mild bilateral lung crackles in both vasquez. No wheezes at this time. Cardiovascular: Normal heart sounds S1 and S2 with no associated murmurs Abdomen: Abdomen nondistended, there is no pain to palpation in any of the abdominal quadrants, no palpable masses. Extremities: There is no peripheral edema present at the lower extremities. Peripheral Pulses: 3+ Radial (R). 3+ Radial (L). 3+ Dorsalis pedis (R). 3+ Dorsalis pedis(L) Skin: No rashes or pruritus, there is no sacral edema present at this time. Neurological: unable to evaluate completely due to poor cooperation from the patient. laboratory and microbiology Laboratory Tests 08/05/24 04:32 Test 08/05/24 04:32 Range/Units Serum Glucose 90 74-106 mg/dL Microbiology Date/Time Source Procedure Growth Status 08/04/24 22:25 Nose MRSA Screen - Final Complete 08/03/24 21:16 Blood Blood Culture - Preliminary Resulted Problem List/Assessment/Plan Problem List/Assessment/Plan Assessment/plan Acute metabolic/toxic encephalopathy in the setting of sepsis and amphetamine use -urine drug screen came back positive for amphetamines -patient is currently on sepsis -CT of the head without contrast came back grossly unremarkable -ammonia levels were <10 Sepsis due to Gram-positive/Gram-negative pneumonia, UTI and bacteremia Acute hypoxic respiratory failure due to Gram-positive/Gram-negative bacterial pneumonia Multifocal pneumonia Possible underlying interstitial lung disease Acute gram positive cocci bacteremia Acute UTI -initial WBC was 27.9, patient was hypotensive and on acute distress. -chest x-ray showed right middle lobe opacities and left upper lobe diffuse opacities which could be due to multifocal pneumonia -blood culture came back showing Gram-positive cocci in chains -UA suggestive of UTI -patient is currently on room air -continue IV linezolid and cefepime -Continue IV azithromycin to cover for atypical microorganisms -ordered blood cultures we will came back showing Gram-positive cocci in chains -sputum cultures still pending -ordered MRSA screen was still pending BRIANA due to vasomotor nephropathy in the setting of sepsis -creatinine initially was 3.47, currently improving. Cr 1.57 -continue IV fluids at 75 cc/hour -monitor kidney function Acute transaminitis possible in the setting of sepsis -AST 106, ALT 60, alkaline phosphatase 158 -ordered liver ultrasound -monitor liver enzymes Chronic drug abuser -UDS came back positive for amphetamines -counseled on drug cessation for >8min Hx of schizophrenia -On no medication, will f/u with psych as outpatient Goals of care discussed with the patient at bedside for >30min, FULL CODE Plan discussed with Dr. Velazquez Plan discussed with: Patient My Orders My Orders Orders - GWEN FERNÁNDEZ Procedure Category Date Status Time Magnesium LAB 08/06/24 Logged 04:00 Complete Blood Count LAB 08/06/24 Logged 04:00 Basic Metabolic Panel LAB 08/06/24 Logged 04:00 Chest Xray 1 View XY 08/06/24 Resulted 04:00 Dietary Evaluation Review Comments: 1) Ensure Enlive 240ml TID (ordered per ONS protocol) 2) Continue current plan of care Expected Outcomes/Goals: To meet >75% estimated needs Fu 3-5 days Date of Service: Aug 06, 2024 Billing Provider: ZA VELAZQUEZ DO Common Visit Codes: [id number] INP/OBS CARE(HIGH) GWEN FERNÁNDEZ RESIDENT Aug 06, 2024 10:28 ZA VELAZQUEZ DO Aug 08, 2024 22:17
[2024-08-06 11:27] LABS: Basophils # (auto) 0 10 ^3/uL (0-0.2); Basophils % (auto) 0.1 % (0.0-2.0); Eosinophils # (auto) 0.1 10 ^3/uL (0-0.8); Eosinophils % (auto) 0.4 % (0.0-7.0); Hematocrit 34.8 % (41.0-53.0); Hemoglobin 11.6 g/dL (13.5-17.5); Lymphocytes # (auto) 0.4 10 ^3/uL (0.4-5.4); Lymphocytes % (auto) 2.5 % (10.0-50.0); Mean Corpuscular Hemoglobin 28.5 pg (28.0-32.0); Mean Corpuscular Hgb Conc. 33.3 g/dL (32.0-36.0); Mean Corpuscular Volume 85.5 fL (80.0-100.0); Monocytes # (auto) 0.5 10 ^3/uL (0-1.3); Monocytes % (auto) 2.8 % (0.0-12.0); Neutrophils # (auto) 16.1 10 ^3/uL (1.6-8.6); Neutrophils % (auto) 94.2 % (37.0-80.0); Nucleated Red Blood Cells % 0.1 %; Platelet Count (auto) 135 10^3/uL (140-450); Red Blood Cells 4.07 10^6/uL (4.5-5.90); Red Cell Distribution Width 14.8 % (11.8-14.3); White Blood Cell 17.1 10^3/uL (4.4-10.8)
[2024-08-06 11:28] LABS: Chloride 100 mmol/L (98-107)
[2024-08-06 11:29] LABS: Anion Gap 8 (5-15); Carbon Dioxide 27 mmol/L (20-31)
[2024-08-06 11:32] LABS: Calcium 8.5 mg/dL (8.7-10.4); Potassium 3.4 mmol/L (3.5-5.1); Sodium 135 mmol/L (136-145)
[2024-08-06 11:34] LABS: BUN/Creatinine Ratio 39.8 (10.0-20.0)
[2024-08-06 11:35] LABS: Blood Urea Nitrogen 35 mg/dL (9-23); Glucose 150 mg/dL (74-106); Magnesium 1.4 mg/dL (1.6-2.6)
[2024-08-06] MEDS: POTASSIUM EFFERVESENT TAB 25 MEQ PO ONE (17:26)
[2024-08-06] MEDS: MAGNESIUM SULFATE 1GM/100ML 100 ML IV SCH (17:27)
[2024-08-06] MEDS ORDERED: VANCOMYCIN PER PHARMACY 0 MG IV SCH (17:30)
--- NOTE | 2024-08-06 20:58 | DVHPN2 ---
Progress Note - Dictate Date Seen: Aug 06, 2024 Has the PT tested + for MRSA If YES, has PT been informed?: No Medical Necessity Reason Pt with a Central, PICC or Fol: No Subjective Patient seen and examined at bedside. Remains on supplemental oxygen Overnight events reviewed. vital signs Vital Sign Date Time Temp Pulse Resp B/P (MAP) Pulse Ox O2 Delivery O2 Flow Rate FiO2 08/06/24 17:00 97.7 79 18 121/61 (81) 95 97.7 08/06/24 12:58 Nasal Cannula 3.0 08/06/24 12:58 32 Total Intake and Output 08/05/24 08/05/24 08/06/24 15:00 23:00 07:00 Intake Total 550 ml 1485 ml 1880 ml Output Total 650 ml 850 ml Balance 550 ml 835 ml 1030 ml medications Current Medications Medications Dose Ordered Sig/Elvia Route Start Time Stop Time Status Last Admin Dose Admin Lorazepam 0.5 mg Q6HP PRN PO 08/03/24 23:00 08/04/24 02:27 0.5 MG Acetaminophen 650 mg Q6HP PRN PO 08/03/24 23:00 Ondansetron HCl 4 mg Q4HP PRN IV 08/03/24 23:00 Morphine Sulfate 2 mg Q4HPRN PRN IV 08/03/24 23:00 Enoxaparin Sodium 40 mg DAILY SC 08/04/24 10:00 08/05/24 10:01 40 MG Levalbuterol HCl 0.625 mg Q6HR NEB 08/04/24 06:00 08/06/24 12:50 0.625 MG Ipratropium [place] 0.5 mg Q6HR NEB 08/04/24 06:15 08/06/24 12:50 0.5 MG Azithromycin 250 ml @ 125 mls/hr DAILY@1200 IV 08/04/24 12:00 08/06/24 12:07 125 MLS/HR Nicotine 1 patch DAILY TD 08/05/24 10:00 Vancomycin HCl 0 ml @ 0 mls/hr UD IV 08/06/24 17:30 Vancomycin HCl 100 ml @ 100 mls/hr Q12H IV 08/06/24 20:00 objective Gen.: Patient lying in bed in no apparent distress. On supplemental oxygen. Head: Normocephalic, atraumatic. Eyes: EOMI/PERRLA. Ears: Normal hearing. Normal anatomy. Neck/trachea: Trachea midline, supple. Nose: Normal external anatomy. Mouth: Moist mucous membranes. Chest: Decreased air entry bilaterally. No wheezing or rhonchi. Cardiovascular: Positive S1, positive S2. Regular rate and rhythm. Abdomen: Positive bowel sounds in all 4 quadrants. Soft, non-tender, non- distended. : Deferred. Rectal: Deferred. Skin: Warm, dry. Intact. Extremities: 2+ radial pulses bilaterally. No lower extremity edema. Neuro: Awake, alert, oriented x3. No gross motor or sensory deficits. Cranial nerves II through XII intact. Gait not assessed. laboratory and microbiology Laboratory Tests 08/06/24 10:50 Test 08/06/24 10:50 Range/Units Serum Glucose 150 H 74-106 mg/dL Assessment/Plan Impression: Acute hypoxic respiratory failure Dependence on supplemental oxygen Metabolic encephalopathy 2/2 sepsis Sepsis 2/2 pneumonia Pneumonia, likely gram negative Chronic obstructive pulmonary disease Pulmonary cachexia, BMI 19.6 Urinary tract infection Nicotine dependence Events: Remains on supplemental oxygen, 2 LPM NC Taper O2 as tolerated Patient has 1:1 sitter for safety. Continue bronchodilators IV steroids Continue antibiotics Monitor WBC - currently 17.1 K Incentive spirometry CXR demonstrates stable bilateral patchy airspace disease. Labs and imaging reviewed. Rest of plan as noted below. Plan: Supplemental oxygen Titrate to keep O2 sats above 92%. Continue bronchodilators. Continue antibiotics Blood cultures show no growth after 24 hours Stool cultures negative Incentive spirometry Monitor renal function. Monitor electrolytes. Supplement as necessary. Monitor ins and outs. Smoking cessation education. DVT prophylaxis - Lovenox. Prognosis: Poor given patient's multiple co-morbidities. Rest of plan per hospitalist and other consultants. Thank you, Dr. Steele, for allowing me to participate in this patient's care. Further recommendations will depend on the patient's clinical course. Please do not hesitate to contact me if you have any questions or concerns. This medical document was created using an electronic medical record system with [employer] system. Although these documentations are being carefully reviewed, there may still be some phonetic and typographical changes. The errors are purely typographical, due to imperfection on the software program, and do not reflect any compromise in the patient's medical care. Dietary Evaluation Review Comments: 1) Ensure Enlive 240ml TID (ordered per [facility]NS protocol) 2) Continue current plan of care Expected Outcomes/Goals: To meet >75% estimated needs Fu 3-5 days Plan discussed with: Patient, Other (RN Cheyanne) GAY AMBROCIO MD Aug 06, 2024 20:58
[2024-08-06] MEDS: VANCOMYCIN 750MG KIT 100 ML IV SCH (22:57)
[2024-08-07] VITALS (16 sets, daily range): BP systolic 110–129; BP diastolic 55–69; PULSE 71–93; RESP 14–28; TEMP 97.7–98.5; O2SAT 90–100
--- NOTE | 2024-08-07 10:38 | DVHPNRES ---
Progress Note Date Seen: Aug 07, 2024 Resident Creating Document: GWEN FERNÁNDEZ RESIDENT Has the PT tested + for MRSA If YES, has PT been informed?: No Medical Necessity Reason Pt with a Central, PICC or Fol: No Subjective Review of Systems This is a 64-year-old male, very poor historian which does not provide any pertinent history difficult to understand. Patient has past medical history of [place] in with no interventional procedures and schizophrenia on no medications. Patient presented to the ED with chief complaint of progressive dyspnea associated with chest pain and nonbloody diarrhea. Per patient he had approximately five episodes of diarrhea per day in the last couple of days. Upon admission, Patient denied fever/chills, shortness of breath, abdominal tenderness, or any other associated symptoms. Initial labs showed a WBC of 27.9, hemoglobin of 13.8 and a creatinine 3.47. Urine drug screen came back positive for amphetamines and liver enzymes and alkaline phosphatase were all elevated. Initial chest x-ray was showing right middle lobe opacities and left upper lobe diffuse opacities consistent with possible multifocal pneumonia. CT scan of the head was grossly unremarkable with no acute intracranial abnormalities. UA was suggesting UTI. Patient was initially started on linezolid and cefepime due to BRIANA and was admitted for further assessment and management. Patient seen and examined at bedside. Patient is poor historian and not cooperative. Patient is refusing morning labs, [place] [address] which is coming down but still elevated. We will titrate oxygen down and monitor saturations closely. We discontinued linezolid and cefepime and started the patient on vancomycin. We will continue azithromycin and vancomycin. Blood cultures are coming now negative. Patient still complaining of cough and shortness of breaths with mild chest tenderness at this time. Upon my examination, when I touch left-sided of the chest patient complains of mild tenderness that is reproducible to palpation. No additional complaints at this time. Patient had a fever yesterday in the morning but no fever overnight or today. ROS Constitutional: Denies weight loss, fever and chills. HEENT: Denies changes in vision and hearing. Respiratory: Reports mild shortness of breath and cough Cardiovascular: Reports mild chest discomfort upon palpation of the left upper thorax. Denies palpitations GI: Denies abdominal pain, nausea, vomiting and diarrhea. : Denies dysuria and urinary frequency. Musculoskeletal: Denies myalgias and joint pain Skin: Denies rash and pruritus. Neurological: Denies dizziness, headache, vision or hearing problems Objective vital signs Vital Sign Date Time Temp Pulse Resp B/P (MAP) Pulse Ox O2 Delivery O2 Flow Rate FiO2 08/07/24 07:36 76 20 99 08/07/24 07:28 Room Air 0.0 08/07/24 07:28 21 08/07/24 05:00 98.3 110/66 (81) 98.3 Total Intake and Output 08/06/24 08/06/24 08/07/24 15:00 23:00 07:00 Intake Total 600 ml 800 ml 450 ml Output Total 600 ml Balance 600 ml 200 ml 450 ml medications Current Medications Medications Dose Ordered Sig/Elvia Route Start Time Stop Time Status Last Admin Dose Admin Lorazepam 0.5 mg Q6HP PRN PO 08/03/24 23:00 08/04/24 02:27 0.5 MG Acetaminophen 650 mg Q6HP PRN PO 08/03/24 23:00 Ondansetron HCl 4 mg Q4HP PRN IV 08/03/24 23:00 Morphine Sulfate 2 mg Q4HPRN PRN IV 08/03/24 23:00 Enoxaparin Sodium 40 mg DAILY SC 08/04/24 10:00 08/05/24 10:01 40 MG Levalbuterol HCl 0.625 mg Q6HR NEB 08/04/24 06:00 08/07/24 07:28 0.625 MG Ipratropium [place] 0.5 mg Q6HR NEB 08/04/24 06:15 08/07/24 07:27 0.5 MG Azithromycin 250 ml @ 125 mls/hr DAILY@1200 IV 08/04/24 12:00 08/06/24 12:07 125 MLS/HR Nicotine 1 patch DAILY TD 08/05/24 10:00 Vancomycin HCl 0 ml @ 0 mls/hr UD IV 08/06/24 17:30 Vancomycin HCl 100 ml @ 100 mls/hr Q12H IV 08/06/24 20:00 08/07/24 08:37 100 MLS/HR Examination Physical Examination General: Patient alert and oriented but is not coherent. poor historian. Patient following commands. HEENT: Normocephalic, atraumatic, moist mucous membranes Respiratory/pulmonary: There are still mild bilateral lung crackles in both vasquez. No wheezes at this time. Cardiovascular: Normal heart sounds S1 and S2 with no associated murmurs Abdomen: Abdomen nondistended, there is no pain to palpation in any of the abdominal quadrants, no palpable masses. Extremities: There is no peripheral edema present at the lower extremities. Peripheral Pulses: 3+ Radial (R). 3+ Radial (L). 3+ Dorsalis pedis (R). 3+ Dorsalis pedis(L) Skin: No rashes or pruritus, there is no sacral edema present at this time. Neurological: unable to evaluate completely due to poor cooperation from the patient. laboratory and microbiology Laboratory Tests 08/06/24 10:50 Test 08/06/24 10:50 Range/Units Serum Glucose 150 H 74-106 mg/dL Microbiology Date/Time Source Procedure Growth Status 08/05/24 18:08 Blood Blood Culture - Preliminary NO GROWTH AFTER 24 HOURS OF INCUBATION. Resulted 08/05/24 15:45 Stool Stool Culture - Preliminary Resulted 08/05/24 15:45 Stool Shiga Toxin I & II - Final Resulted 08/05/24 15:45 Stool Clostridium difficile Toxin Assay - Final Resulted 08/04/24 22:25 Nose MRSA Screen - Final Complete Problem List/Assessment/Plan Problem List/Assessment/Plan Assessment/plan Acute metabolic/toxic encephalopathy in the setting of sepsis and amphetamine use -urine drug screen came back positive for amphetamines -patient is currently on sepsis -CT of the head without contrast came back grossly unremarkable -ammonia levels were <10 Sepsis due to Gram-positive/Gram-negative pneumonia, UTI and bacteremia Acute hypoxic respiratory failure due to Gram-positive/Gram-negative bacterial pneumonia Multifocal pneumonia Possible underlying interstitial lung disease Acute gram positive cocci bacteremia Acute UTI -initial WBC was 27.9, patient was hypotensive and on acute distress. -chest x-ray showed right middle lobe opacities and left upper lobe diffuse opacities which could be due to multifocal pneumonia -blood culture came back showing Gram-positive cocci in chains -UA suggestive of UTI -patient is currently on room air -Discontinue IV linezolid and cefepime -Start vancomycin -Continue PO azithromycin to cover for atypical microorganisms -ordered blood cultures we will came back showing Gram-positive cocci in chains -sputum cultures still pending -ordered MRSA screen was still pending BRIANA due to vasomotor nephropathy in the setting of sepsis -creatinine initially was 3.47, currently improving. Cr 1.57 -continue IV fluids at 75 cc/hour -monitor kidney function Acute transaminitis possible in the setting of sepsis -AST 106, ALT 60, alkaline phosphatase 158 -ordered liver ultrasound -monitor liver enzymes Chronic drug abuser -UDS came back positive for amphetamines -counseled on drug cessation for >8min Hx of schizophrenia -On no medication, will f/u with psych as outpatient Goals of care discussed with the patient at bedside for >30min, FULL CODE Plan discussed with Dr. Velazquez Plan discussed with: Patient My Orders My Orders Orders - GWEN FERNÁNDEZ Procedure Category Date Status Time Vancomycin Per PHA 08/06/24 In Process Pharmacy 17:30 Respiratory Culture [place] 08/06/24 Logged W/ Gs 17:18 Complete Blood Count LAB 08/07/24 Logged 04:00 Basic Metabolic Panel LAB 08/07/24 Logged 04:00 Magnesium LAB 08/07/24 Logged 04:00 Vancomycin 750mg Kit PHA 08/06/24 In Process (Vancomycin Hcl) 20:00 Vancomycin,Trough LAB 08/08/24 Verified 07:00 Vancomycin Per DELORIS 08/06/24 In Process Pharmacy Protoc 17:30 Dietary Evaluation Review Comments: 1) Ensure Enlive 240ml TID (ordered per ONS protocol) 2) Continue current plan of care Expected Outcomes/Goals: To meet >75% estimated needs Fu 3-5 days Date of Service: Aug 07, 2024 Billing Provider: ZA VELAZQUEZ DO Common Visit Codes: [id number] INP/OBS CARE(HIGH) GWEN FERNÁNDEZ RESIDENT Aug 07, 2024 10:38 ZA VELAZQUEZ DO Aug 08, 2024 22:18
[2024-08-07] MEDS: AZITHROMYCIN 250 MG TAB PO SCH (11:23)
--- NOTE | 2024-08-07 12:07 | DVHPN2 ---
Progress Note - Dictate Date Seen: Aug 07, 2024 Has the PT tested + for MRSA If YES, has PT been informed?: No Medical Necessity Reason Pt with a Central, PICC or Fol: No vital signs Vital Sign Date Time Temp Pulse Resp B/P (MAP) Pulse Ox O2 Delivery O2 Flow Rate FiO2 08/07/24 07:36 76 20 99 08/07/24 07:28 Room Air 0.0 08/07/24 07:28 21 08/07/24 05:00 98.3 110/66 (81) 98.3 Total Intake and Output 08/06/24 08/06/24 08/07/24 15:00 23:00 07:00 Intake Total 600 ml 800 ml 450 ml Output Total 600 ml Balance 600 ml 200 ml 450 ml medications Current Medications Medications Dose Ordered Sig/Elvia Route Start Time Stop Time Status Last Admin Dose Admin Lorazepam 0.5 mg Q6HP PRN PO 08/03/24 23:00 08/04/24 02:27 0.5 MG Acetaminophen 650 mg Q6HP PRN PO 08/03/24 23:00 Ondansetron HCl 4 mg Q4HP PRN IV 08/03/24 23:00 Morphine Sulfate 2 mg Q4HPRN PRN IV 08/03/24 23:00 Enoxaparin Sodium 40 mg DAILY SC 08/04/24 10:00 08/05/24 10:01 40 MG Levalbuterol HCl 0.625 mg Q6HR NEB 08/04/24 06:00 08/07/24 11:54 0.625 MG Ipratropium [employer] 0.5 mg Q6HR NEB 08/04/24 06:15 08/07/24 11:54 0.5 MG Nicotine 1 patch DAILY TD 08/05/24 10:00 Vancomycin HCl 0 ml @ 0 mls/hr UD IV 08/06/24 17:30 Vancomycin HCl 100 ml @ 100 mls/hr Q12H IV 08/06/24 20:00 08/07/24 08:37 100 MLS/HR Azithromycin 500 mg DAILY PO 08/07/24 10:32 08/07/24 11:23 500 MG laboratory and microbiology Laboratory Tests 08/06/24 10:50 Test 08/06/24 10:50 Range/Units Serum Glucose 150 H 74-106 mg/dL Assessment/Plan Impression: Acute hypoxemic respiratory failure Pneumonia Smoker Sepsis Patient seen and examined Events: Low oxygen requirements On 2 liters nasal cannula No distress Labs and imaging reviewed CXR demonstrates stable bilateral patchy airspace disease. Plan: Supplemental oxygen Titrate to keep O2 sats above 92%. Continue bronchodilators. Continue antibiotics F/u cultures Stool cultures negative Incentive spirometry Monitor renal function. Monitor electrolytes. Supplement as necessary. Monitor ins and outs. DVT prophylaxis Dietary Evaluation Review Comments: 1) Ensure Enlive 240ml TID (ordered per ONS protocol) 2) Continue current plan of care Expected Outcomes/Goals: To meet >75% estimated needs Fu 3-5 days Plan discussed with: Patient LYNDSAY SINGLETON MD Aug 07, 2024 12:07
[2024-08-07 14:54] LABS: Anion Gap 8 (5-15); Carbon Dioxide 29 mmol/L (20-31); Hematocrit 35.8 % (41.0-53.0); Hemoglobin 11.8 g/dL (13.5-17.5); Mean Corpuscular Hemoglobin 28.5 pg (28.0-32.0); Mean Corpuscular Hgb Conc. 33.1 g/dL (32.0-36.0); Mean Corpuscular Volume 86.2 fL (80.0-100.0); Platelet Count (auto) 167 10^3/uL (140-450); Red Blood Cells 4.15 10^6/uL (4.5-5.90); Red Cell Distribution Width 14.6 % (11.8-14.3); White Blood Cell 15.9 10^3/uL (4.4-10.8)
[2024-08-07 14:59] LABS: BUN/Creatinine Ratio 30.1 (10.0-20.0); Band Neutrophils % (manual) 0; Basophils % (manual) 0 (0.0-2.0); Blast Cells 0; Metamyelocytes % 0; Monocytes % (manual) 0 (0-12); Myelocytes % 0; Promyelocytes % 0; Reactive Lymphocytes 0
[2024-08-07 15:00] LABS: Blood Urea Nitrogen 25 mg/dL (9-23); Calcium 8.5 mg/dL (8.7-10.4); Chloride 95 mmol/L (98-107); Glucose 155 mg/dL (74-106); Magnesium 1.5 mg/dL (1.6-2.6); Potassium 3.4 mmol/L (3.5-5.1); Sodium 132 mmol/L (136-145)
[2024-08-07 16:01] LABS: Eosinophils % (manual) 2 (0-7); Lymphocytes % (manual) 8 (10.0-50.0); Platelet Estimate Adequate
[2024-08-08] VITALS (12 sets, daily range): BP systolic 95–138; BP diastolic 50–83; PULSE 77–97; RESP 16–20; TEMP 97.5–99.6; O2SAT 93–100
[2024-08-08] MEDS: PANTOPRAZOLE 40 MG/10 ML VIAL INJ IV ONE (02:41)
[2024-08-08 05:50] LABS: Basophils # (auto) 0 10 ^3/uL (0-0.2); Basophils % (auto) 0.1 % (0.0-2.0); Eosinophils # (auto) 0.2 10 ^3/uL (0-0.8); Hematocrit 36.3 % (41.0-53.0); Hemoglobin 12.3 g/dL (13.5-17.5); Lymphocytes # (auto) 0.7 10 ^3/uL (0.4-5.4); Lymphocytes % (auto) 4.8 % (10.0-50.0); Mean Corpuscular Hemoglobin 28.9 pg (28.0-32.0); Mean Corpuscular Hgb Conc. 33.8 g/dL (32.0-36.0); Mean Corpuscular Volume 85.5 fL (80.0-100.0); Monocytes # (auto) 0.7 10 ^3/uL (0-1.3); Monocytes % (auto) 4.2 % (0.0-12.0); Neutrophils # (auto) 14.1 10 ^3/uL (1.6-8.6); Neutrophils % (auto) 89.9 % (37.0-80.0); Platelet Count (auto) 169 10^3/uL (140-450); Red Blood Cells 4.25 10^6/uL (4.5-5.90); Red Cell Distribution Width 14.2 % (11.8-14.3); White Blood Cell 15.7 10^3/uL (4.4-10.8)
[2024-08-08 06:01] LABS: Potassium 3.8 mmol/L (3.5-5.1)
[2024-08-08 06:02] LABS: Anion Gap 7 (5-15); Carbon Dioxide 31 mmol/L (20-31)
[2024-08-08 06:07] LABS: Glucose 103 mg/dL (74-106)
[2024-08-08 06:08] LABS: BUN/Creatinine Ratio 34.3 (10.0-20.0)
[2024-08-08 06:14] LABS: Blood Urea Nitrogen 24 mg/dL (9-23); Calcium 8.4 mg/dL (8.7-10.4); Chloride 94 mmol/L (98-107); Sodium 132 mmol/L (136-145)
--- NOTE | 2024-08-08 12:24 | DVHPN2 ---
Progress Note - Dictate Date Seen: Aug 08, 2024 Has the PT tested + for MRSA If YES, has PT been informed?: No Medical Necessity Reason Pt with a Central, PICC or Fol: No vital signs Vital Sign Date Time Temp Pulse Resp B/P (MAP) Pulse Ox O2 Delivery O2 Flow Rate FiO2 08/08/24 11:14 96 Nasal Cannula 0.0 08/08/24 11:14 21 08/08/24 09:00 98.3 85 16 117/73 (88) 98.3 Total Intake and Output 08/07/24 08/07/24 08/08/24 15:00 23:00 07:00 Intake Total 100 ml 400 ml 650 ml Balance 100 ml 400 ml 650 ml medications Current Medications Medications Dose Ordered Sig/Elvia Route Start Time Stop Time Status Last Admin Dose Admin Lorazepam 0.5 mg Q6HP PRN PO 08/03/24 23:00 08/04/24 02:27 0.5 MG Acetaminophen 650 mg Q6HP PRN PO 08/03/24 23:00 Ondansetron HCl 4 mg Q4HP PRN IV 08/03/24 23:00 Morphine Sulfate 2 mg Q4HPRN PRN IV 08/03/24 23:00 Enoxaparin Sodium 40 mg DAILY SC 08/04/24 10:00 08/08/24 08:28 40 MG Levalbuterol HCl 0.625 mg Q6HR NEB 08/04/24 06:00 08/08/24 05:43 0.625 MG Ipratropium [place] 0.5 mg Q6HR NEB 08/04/24 06:15 08/08/24 05:43 0.5 MG Nicotine 1 patch DAILY TD 08/05/24 10:00 Vancomycin HCl 0 ml @ 0 mls/hr UD IV 08/06/24 17:30 Vancomycin HCl 100 ml @ 100 mls/hr Q12H IV 08/06/24 20:00 08/08/24 08:28 100 MLS/HR Azithromycin 500 mg DAILY PO 08/07/24 10:32 08/08/24 08:28 500 MG laboratory and microbiology Laboratory Tests 08/08/24 04:51 Test 08/08/24 04:51 Range/Units Serum Glucose 103 74-106 mg/dL Assessment/Plan Impression: Acute hypoxemic respiratory failure Pneumonia Smoker Sepsis Patient seen and examined Events: Low oxygen requirements On 2 liters nasal cannula No distress Labs and imaging reviewed CXR demonstrates stable bilateral patchy airspace disease. Plan: Supplemental oxygen Titrate to keep O2 sats above 92%. Continue bronchodilators. Continue antibiotics F/u cultures Stool cultures negative Incentive spirometry Monitor renal function. Monitor electrolytes. Supplement as necessary. Monitor ins and outs. DVT prophylaxis Dietary Evaluation Review Comments: 1) Ensure Enlive 240ml TID (ordered per [facility] protocol) 2) Continue current plan of care Expected Outcomes/Goals: To meet >75% estimated needs Fu 3-5 days Plan discussed with: Patient LYNDSAY SINGLETON MD Aug 08, 2024 12:24
--- NOTE | 2024-08-08 12:42 | DVHPN2 ---
Subjective The patient is seen and examined at bedside. No complaint today. Reviewed: Care Plan, H&P, Labs, Medications, Previous Orders, Radiology Changes from previous H/P or p: No Changes General: Per HPI Objective Vitals Vital Signs Date Time Temp Pulse Resp B/P (MAP) Pulse Ox O2 Delivery O2 Flow Rate FiO2 08/08/24 11:14 96 Nasal Cannula 0.0 08/08/24 11:14 21 08/08/24 09:00 98.3 85 16 117/73 (88) 98.3 Intake/Output Intake and Output 08/08/24 07:00 Intake Total 1150 ml Balance 1150 ml Intake Oral 950 ml IV Total 200 ml # Voids 9 # Bowel Movements 8 General Appearance: Alert, No acute distress HEENT: Atraumatic, PERRLA, EOMI, Mucous membr. moist/pink Neck: Supple Lungs: Clear to auscultation, Normal air movement Cardiovascular: Regular rate, Normal S1, Normal S2, No murmurs, Gallops, Rubs Abdomen: Normal bowel sounds, Soft, No tenderness Neuro: Strength at 5/5 X4 ext, Cranial nerves 3-12 NL Psych/Mental Status: Mental status NL Medications Current Medications Medications Dose Ordered Sig/Elvia Route Start Time Stop Time Status Last Admin Dose Admin Lorazepam 0.5 mg Q6HP PRN PO 08/03/24 23:00 08/04/24 02:27 0.5 MG Acetaminophen 650 mg Q6HP PRN PO 08/03/24 23:00 Ondansetron HCl 4 mg Q4HP PRN IV 08/03/24 23:00 Morphine Sulfate 2 mg Q4HPRN PRN IV 08/03/24 23:00 Enoxaparin Sodium 40 mg DAILY SC 08/04/24 10:00 08/08/24 08:28 40 MG Levalbuterol HCl 0.625 mg Q6HR NEB 08/04/24 06:00 08/08/24 05:43 0.625 MG Ipratropium [place] 0.5 mg Q6HR NEB 08/04/24 06:15 08/08/24 05:43 0.5 MG Nicotine 1 patch DAILY TD 08/05/24 10:00 Vancomycin HCl 0 ml @ 0 mls/hr UD IV 08/06/24 17:30 Vancomycin HCl 100 ml @ 100 mls/hr Q12H IV 08/06/24 20:00 08/08/24 08:28 100 MLS/HR Azithromycin 500 mg DAILY PO 08/07/24 10:32 08/08/24 08:28 500 MG Laboratory Results Laboratory Tests 08/08/24 04:51 Chemistry Test 08/07/24 14:20 08/08/24 04:51 Calcium Level 8.5 mg/dL (8.7-10.4) L 8.4 mg/dL (8.7-10.4) L Magnesium Level 1.5 mg/dL (1.6-2.6) L Urinalysis Test 08/04/24 00:07 Urine Color Yellow (Yellow) Urine Clarity Turbid (Clear) H Urine pH 5.5 (5.0-9.0) Urine Specific [place] 1.021 (1.001-1.035) Urine Protein 1+ (Negative) H Urine Ketones Trace (Negative) Urine Blood 1+ /uL (Negative) H Urine Nitrite Negative (Negative) Urine Bilirubin Negative (Negative) Urine Urobilinogen Normal mg/dL (Negative) Urine Leukocyte Esterase 2+ /uL (Negative) Urine RBC 2 /hpf (0 - 3) Urine WBC Clumps Present /hpf (None Seen) Urine Microscopic WBC 60 /HPF (0-3) H Urine Squamous Epithelial Cells Few /hpf (<5) Urine Bacteria Few /hpf (None Seen) H Urine Hyaline Casts Few /lpf (0 - 2) Urine Granular Casts Mod /lpf (0) Urine Mucus Few (None Seen) Urine Glucose Normal mg/dL (Normal) Microbiology Microbiology Date/Time Source Procedure Growth Status 08/05/24 18:08 Blood Blood Culture - Preliminary NO GROWTH AFTER 48 HOURS OF INCUBATION. Resulted 08/05/24 15:45 Stool Stool Culture - Preliminary Resulted 08/05/24 15:45 Stool Shiga Toxin I & II - Final Resulted 08/05/24 15:45 Stool Clostridium difficile Toxin Assay - Final Resulted 08/04/24 22:25 Nose MRSA Screen - Final Complete Labs and/or images reviewed: Labs reviewed by me Assessment/Plan Assessment/Plan Acute metabolic/toxic encephalopathy in the setting of sepsis and amphetamine use -urine drug screen came back positive for amphetamines -patient is currently on sepsis -CT of the head without contrast came back grossly unremarkable -ammonia levels were <10 Sepsis due to Gram-positive/Gram-negative pneumonia, UTI and bacteremia Acute hypoxic respiratory failure due to Gram-positive/Gram-negative bacterial pneumonia Multifocal pneumonia Possible underlying interstitial lung disease Acute gram positive cocci bacteremia Acute UTI -initial WBC was 27.9, patient was hypotensive and on acute distress. -chest x-ray showed right middle lobe opacities and left upper lobe diffuse opacities which could be due to multifocal pneumonia -blood culture came back showing Gram-positive cocci in chains -UA suggestive of UTI -patient is currently on room air -Discontinue IV linezolid and cefepime -Start vancomycin -Continue PO azithromycin to cover for atypical microorganisms -ordered blood cultures we will came back showing Gram-positive cocci in chains -sputum cultures still pending -ordered MRSA screen was still pending BRIANA due to vasomotor nephropathy in the setting of sepsis -creatinine initially was 3.47, currently improving. Cr 1.57 -continue IV fluids at 75 cc/hour -monitor kidney function Acute transaminitis possible in the setting of sepsis -AST 106, ALT 60, alkaline phosphatase 158 -ordered liver ultrasound -monitor liver enzymes Chronic drug abuser -UDS came back positive for amphetamines -counseled on drug cessation for >8min Hx of schizophrenia -On no medication, will f/u with psych as outpatient Continuing current management This medical document was created using an electronic medical record system with [employer] direct computerized dictation system. Although this document has been carefully reviewed, there may still be some phonetic and typographical errors. These areas are purely typographical due to imperfections of the software programs, and do not reflect any compromise in the patient's medical care. Plan discussed with: Patient Date of Service: Aug 08, 2024 Billing Provider: CURT RAPP MD Common Visit Codes: [id number] INP/OBS CARE(HIGH) CURT RAPP MD Aug 08, 2024 12:42
[2024-08-09] VITALS (12 sets, daily range): BP systolic 100–115; BP diastolic 52–81; PULSE 72–97; RESP 15–19; TEMP 97.6–98.4; O2SAT 92–96
--- NOTE | 2024-08-09 10:19 | DVHPN2 ---
Progress Note - Dictate Date Seen: Aug 09, 2024 Has the PT tested + for MRSA If YES, has PT been informed?: No Medical Necessity Reason Pt with a Central, PICC or Fol: No vital signs Vital Sign Date Time Temp Pulse Resp B/P (MAP) Pulse Ox O2 Delivery O2 Flow Rate FiO2 08/09/24 09:58 95 Room Air* 0 21 08/09/24 09:00 97.6 97 16 112/81 (91) 97.6 Total Intake and Output 08/08/24 08/08/24 08/09/24 15:00 23:00 07:00 Intake Total 580 ml 920 ml 350 ml Output Total 900 ml 800 ml Balance 580 ml 20 ml -450 ml medications Current Medications Medications Dose Ordered Sig/Elvia Route Start Time Stop Time Status Last Admin Dose Admin Lorazepam 0.5 mg Q6HP PRN PO 08/03/24 23:00 08/09/24 05:58 0.5 MG Acetaminophen 650 mg Q6HP PRN PO 08/03/24 23:00 Ondansetron HCl 4 mg Q4HP PRN IV 08/03/24 23:00 Morphine Sulfate 2 mg Q4HPRN PRN IV 08/03/24 23:00 Enoxaparin Sodium 40 mg DAILY SC 08/04/24 10:00 08/09/24 08:21 40 MG Levalbuterol HCl 0.625 mg Q6HR NEB 08/04/24 06:00 08/08/24 05:43 0.625 MG Ipratropium [place] 0.5 mg Q6HR NEB 08/04/24 06:15 08/08/24 05:43 0.5 MG Nicotine 1 patch DAILY TD 08/05/24 10:00 Vancomycin HCl 0 ml @ 0 mls/hr UD IV 08/06/24 17:30 Vancomycin HCl 100 ml @ 100 mls/hr Q12H IV 08/06/24 20:00 08/09/24 08:20 100 MLS/HR Azithromycin 500 mg DAILY PO 08/07/24 10:32 08/09/24 08:21 500 MG laboratory and microbiology Laboratory Tests 08/08/24 04:51 Test 08/08/24 04:51 Range/Units Serum Glucose 103 74-106 mg/dL Assessment/Plan Impression: Acute hypoxemic respiratory failure Pneumonia Smoker Sepsis Patient seen and examined Events: Low oxygen requirements On 2 liters nasal cannula No distress Labs and imaging reviewed CXR demonstrates stable bilateral patchy airspace disease. Plan: Supplemental oxygen Titrate to keep O2 sats above 92%. Continue bronchodilators. Continue antibiotics F/u cultures Stool cultures negative Incentive spirometry Monitor renal function. Monitor electrolytes. Supplement as necessary. Monitor ins and outs. DVT prophylaxis Dietary Evaluation Review Comments: 1) Ensure Enlive 240ml TID (ordered per [facility] protocol) 2) Continue current plan of care Expected Outcomes/Goals: To meet >75% estimated needs Fu 3-5 days Plan discussed with: Other (rn) LYNDSAY SINGLETON MD Aug 09, 2024 10:19
--- NOTE | 2024-08-09 12:41 | DVHPN2 ---
Subjective The patient is seen and examined at bedside. No complaint today. Reviewed: Care Plan, H&P, Labs, Medications, Previous Orders, Radiology Changes from previous H/P or p: No Changes General: Per HPI Objective Vitals Vital Signs Date Time Temp Pulse Resp B/P (MAP) Pulse Ox O2 Delivery O2 Flow Rate FiO2 08/09/24 09:58 95 Room Air* 0 21 08/09/24 09:00 97.6 97 16 112/81 (91) 97.6 Intake/Output Intake and Output 08/09/24 07:00 Intake Total 1850 ml Output Total 1700 ml Balance 150 ml Intake Oral 1400 ml IV Total 100 ml Tube Feeding 350 ml Output Urine Total 1700 ml # Bowel Movements 3 General Appearance: Alert, No acute distress HEENT: Atraumatic, PERRLA, EOMI, Mucous membr. moist/pink Neck: Supple Lungs: Clear to auscultation, Normal air movement Cardiovascular: Regular rate, Normal S1, Normal S2, No murmurs, Gallops, Rubs Abdomen: Normal bowel sounds, Soft, No tenderness Neuro: Strength at 5/5 X4 ext, Cranial nerves 3-12 NL Psych/Mental Status: Mental status NL Medications Current Medications Medications Dose Ordered Sig/Elvia Route Start Time Stop Time Status Last Admin Dose Admin Lorazepam 0.5 mg Q6HP PRN PO 08/03/24 23:00 08/09/24 05:58 0.5 MG Acetaminophen 650 mg Q6HP PRN PO 08/03/24 23:00 Ondansetron HCl 4 mg Q4HP PRN IV 08/03/24 23:00 Morphine Sulfate 2 mg Q4HPRN PRN IV 08/03/24 23:00 Enoxaparin Sodium 40 mg DAILY SC 08/04/24 10:00 08/09/24 08:21 40 MG Levalbuterol HCl 0.625 mg Q6HR NEB 08/04/24 06:00 08/08/24 05:43 0.625 MG Ipratropium [place] 0.5 mg Q6HR NEB 08/04/24 06:15 08/08/24 05:43 0.5 MG Nicotine 1 patch DAILY TD 08/05/24 10:00 Vancomycin HCl 0 ml @ 0 mls/hr UD IV 08/06/24 17:30 Vancomycin HCl 100 ml @ 100 mls/hr Q12H IV 08/06/24 20:00 08/09/24 08:20 100 MLS/HR Azithromycin 500 mg DAILY PO 08/07/24 10:32 08/09/24 08:21 500 MG Laboratory Results Laboratory Tests 08/08/24 04:51 Urinalysis Test 08/04/24 00:07 Urine Color Yellow (Yellow) Urine Clarity Turbid (Clear) H Urine pH 5.5 (5.0-9.0) Urine Specific [place] 1.021 (1.001-1.035) Urine Protein 1+ (Negative) H Urine Ketones Trace (Negative) Urine Blood 1+ /uL (Negative) H Urine Nitrite Negative (Negative) Urine Bilirubin Negative (Negative) Urine Urobilinogen Normal mg/dL (Negative) Urine Leukocyte Esterase 2+ /uL (Negative) Urine RBC 2 /hpf (0 - 3) Urine WBC Clumps Present /hpf (None Seen) Urine Microscopic WBC 60 /HPF (0-3) H Urine Squamous Epithelial Cells Few /hpf (<5) Urine Bacteria Few /hpf (None Seen) H Urine Hyaline Casts Few /lpf (0 - 2) Urine Granular Casts Mod /lpf (0) Urine Mucus Few (None Seen) Urine Glucose Normal mg/dL (Normal) Microbiology Microbiology Date/Time Source Procedure Growth Status 08/05/24 18:08 Blood Blood Culture - Preliminary NO GROWTH AFTER 72 HOURS OF INCUBATION. Resulted 08/05/24 15:45 Stool Stool Culture - Final Complete 08/05/24 15:45 Stool Shiga Toxin I & II - Final Complete 08/05/24 15:45 Stool Clostridium difficile Toxin Assay - Final Complete 08/04/24 22:25 Nose MRSA Screen - Final Complete Labs and/or images reviewed: Labs reviewed by me Assessment/Plan Assessment/Plan Acute metabolic/toxic encephalopathy in the setting of sepsis and amphetamine use -urine drug screen came back positive for amphetamines -patient is currently on sepsis -CT of the head without contrast came back grossly unremarkable -ammonia levels were <10 Sepsis due to Gram-positive/Gram-negative pneumonia, UTI and bacteremia Acute hypoxic respiratory failure due to Gram-positive/Gram-negative bacterial pneumonia Multifocal pneumonia Possible underlying interstitial lung disease Acute gram positive cocci bacteremia Acute UTI -initial WBC was 27.9, patient was hypotensive and on acute distress. -chest x-ray showed right middle lobe opacities and left upper lobe diffuse opacities which could be due to multifocal pneumonia -blood culture came back showing Gram-positive cocci in chains -UA suggestive of UTI -patient is currently on room air -Discontinue IV linezolid and cefepime -Start vancomycin -Continue PO azithromycin to cover for atypical microorganisms -ordered blood cultures we will came back showing Gram-positive cocci in chains -sputum cultures still pending -ordered MRSA screen was still pending BRIANA due to vasomotor nephropathy in the setting of sepsis -creatinine initially was 3.47, currently improving. Cr 1.57 -continue IV fluids at 75 cc/hour -monitor kidney function Acute transaminitis possible in the setting of sepsis -AST 106, ALT 60, alkaline phosphatase 158 -ordered liver ultrasound -monitor liver enzymes Chronic drug abuser -UDS came back positive for amphetamines -counseled on drug cessation for >8min Hx of schizophrenia -On no medication, will f/u with psych as outpatient Continuing current management This medical document was created using an electronic medical record system with [employer] direct computerized dictation system. Although this document has been carefully reviewed, there may still be some phonetic and typographical errors. These areas are purely typographical due to imperfections of the software programs, and do not reflect any compromise in the patient's medical care. Plan discussed with: Other (RN) Date of Service: Aug 09, 2024 Billing Provider: CURT RAPP MD Common Visit Codes: [id number] INP/OBS CARE(HIGH) CURT RAPP MD Aug 09, 2024 12:41
[2024-08-10] VITALS (14 sets, daily range): BP systolic 103–143; BP diastolic 58–87; PULSE 69–99; RESP 16–20; TEMP 36.7; O2SAT 91–100
[2024-08-10 10:29] LABS: Basophils # (auto) 0.1 10 ^3/uL (0-0.2); Basophils % (auto) 0.7 % (0.0-2.0); Eosinophils # (auto) 0.1 10 ^3/uL (0-0.8); Eosinophils % (auto) 0.5 % (0.0-7.0); Hematocrit 35.8 % (41.0-53.0); Lymphocytes % (auto) 5.5 % (10.0-50.0); Mean Corpuscular Hemoglobin 28.6 pg (28.0-32.0); Mean Corpuscular Hgb Conc. 33.4 g/dL (32.0-36.0); Mean Corpuscular Volume 85.6 fL (80.0-100.0); Monocytes # (auto) 0.8 10 ^3/uL (0-1.3); Monocytes % (auto) 4.5 % (0.0-12.0); Neutrophils # (auto) 15.5 10 ^3/uL (1.6-8.6); Neutrophils % (auto) 88.8 % (37.0-80.0); Nucleated Red Blood Cells % 0.1 %; Platelet Count (auto) 397 10^3/uL (140-450); Red Blood Cells 4.18 10^6/uL (4.5-5.90); Red Cell Distribution Width 14.3 % (11.8-14.3); White Blood Cell 17.5 10^3/uL (4.4-10.8)
[2024-08-10 10:32] LABS: Potassium 4.4 mmol/L (3.5-5.1)
[2024-08-10 10:33] LABS: Anion Gap 8 (5-15); Carbon Dioxide 27 mmol/L (20-31)
[2024-08-10 10:35] LABS: Calcium 8.6 mg/dL (8.7-10.4); Chloride 96 mmol/L (98-107); Sodium 131 mmol/L (136-145)
[2024-08-10 10:38] LABS: BUN/Creatinine Ratio 27.4 (10.0-20.0); Blood Urea Nitrogen 23 mg/dL (9-23)
[2024-08-10 10:41] LABS: Glucose 131 mg/dL (74-106)
--- NOTE | 2024-08-10 12:34 | DVHPN2 ---
Progress Note - Dictate Date Seen: Aug 10, 2024 Has the PT tested + for MRSA If YES, has PT been informed?: No Medical Necessity Reason Pt with a Central, PICC or Fol: No vital signs Vital Sign Date Time Temp Pulse Resp B/P (MAP) Pulse Ox O2 Delivery O2 Flow Rate FiO2 08/10/24 11:36 91 Room Air 0.0 08/10/24 11:36 21 08/10/24 09:00 98.1 86 18 110/73 (85) 98.1 Total Intake and Output 08/09/24 08/09/24 08/10/24 15:00 23:00 07:00 Intake Total 1600 ml 900 ml Balance 1600 ml 900 ml medications Current Medications Medications Dose Ordered Sig/Elvia Route Start Time Stop Time Status Last Admin Dose Admin Lorazepam 0.5 mg Q6HP PRN PO 08/03/24 23:00 08/09/24 05:58 0.5 MG Acetaminophen 650 mg Q6HP PRN PO 08/03/24 23:00 Ondansetron HCl 4 mg Q4HP PRN IV 08/03/24 23:00 Morphine Sulfate 2 mg Q4HPRN PRN IV 08/03/24 23:00 Enoxaparin Sodium 40 mg DAILY SC 08/04/24 10:00 08/10/24 08:06 40 MG Levalbuterol HCl 0.625 mg Q6HR NEB 08/04/24 06:00 08/10/24 03:02 0.625 MG Ipratropium [place] 0.5 mg Q6HR NEB 08/04/24 06:15 08/10/24 03:02 0.5 MG Nicotine 1 patch DAILY TD 08/05/24 10:00 Vancomycin HCl 0 ml @ 0 mls/hr UD IV 08/06/24 17:30 Vancomycin HCl 100 ml @ 100 mls/hr Q12H IV 08/06/24 20:00 08/10/24 08:06 100 MLS/HR Azithromycin 500 mg DAILY PO 08/07/24 10:32 08/10/24 08:05 500 MG laboratory and microbiology Laboratory Tests 08/10/24 09:50 Test 08/10/24 09:50 Range/Units Serum Glucose 131 H 74-106 mg/dL Assessment/Plan Impression: Acute hypoxemic respiratory failure Pneumonia Smoker Sepsis Patient seen and examined Events: Low oxygen requirements On 2 liters nasal cannula No distress Labs and imaging reviewed CXR demonstrates stable bilateral patchy airspace disease. Plan: Supplemental oxygen Titrate to keep O2 sats above 92%. Continue bronchodilators. Continue antibiotics F/u cultures Stool cultures negative Incentive spirometry Monitor renal function. Monitor electrolytes. Supplement as necessary. Monitor ins and outs. DVT prophylaxis Dietary Evaluation Review Comments: 1) Ensure Enlive 240ml TID (ordered per [facility] protocol) 2) Continue current plan of care Expected Outcomes/Goals: To meet >75% estimated needs Fu 3-5 days Plan discussed with: Other (rn) LYNDSAY SINGLETON MD Aug 10, 2024 12:34
[2024-08-10] MEDS ORDERED: FLUT1AER3 IN (13:13)
[2024-08-10] MEDS ORDERED: LEVO750T40 PO (13:13)
--- NOTE | 2024-08-10 13:20 | DVHDSRES ---
Discharge Summary Date of Admission Resident Creating Document: GWEN FERNÁNDEZ RESIDENT Aug 03, 2024 at 22:54 Date of Discharge: Aug 10, 2024 Admitting Diagnosis Progressive dyspnea associated with chest pain and nonbloody diarrhea Wounds: No wounds present at this time. Labs/Diagnostic Data: Laboratory Results Test 08/10/24 09:50 08/08/24 04:51 08/07/24 14:20 08/05/24 15:45 White Blood Count 17.5 10^3/uL (4.4-10.8) Red Blood Count 4.18 10^6/uL (4.5-5.90) Hemoglobin 12.0 g/dL (13.5-17.5) Hematocrit 35.8 % (41.0-53.0) Mean Corpuscular Volume 85.6 fL (80.0-100.0) Mean Corpuscular Hemoglobin 28.6 pg (28.0-32.0) Mean Corpuscular Hemoglobin Concent 33.4 g/dL (32.0-36.0) Red Cell Distribution Width 14.3 % (11.8-14.3) Platelet Count 397 10^3/uL (140-450) Mean Platelet Volume 9.8 fL (6.9-10.8) Neutrophils (%) (Auto) 88.8 % (37.0-80.0) Lymphocytes (%) (Auto) 5.5 % (10.0-50.0) Monocytes (%) (Auto) 4.5 % (0.0-12.0) Eosinophils (%) (Auto) 0.5 % (0.0-7.0) Basophils (%) (Auto) 0.7 % (0.0-2.0) Neutrophils # (Auto) 15.5 10 ^3/uL (1.6-8.6) Lymphocytes # (Auto) 1.0 10 ^3/uL (0.4-5.4) Monocytes # (Auto) 0.8 10 ^3/uL (0-1.3) Eosinophils # (Auto) 0.1 10 ^3/uL (0-0.8) Basophils # (Auto) 0.1 10 ^3/uL (0-0.2) Nucleated Red Blood Cells 0.1 % Sodium Level 131 mmol/L (136-145) Potassium Level 4.4 mmol/L (3.5-5.1) Chloride Level 96 mmol/L (98-107) Carbon Dioxide Level 27 mmol/L (20-31) Anion Gap 8 (5-15) Blood Urea Nitrogen 23 mg/dL (9-23) Creatinine 0.84 mg/dL (0.700-1.30) Glomerular Filtration Rate Calc 99 mL/min (>90) BUN/Creatinine Ratio 27.4 (10.0-20.0) Serum Glucose 131 mg/dL (74-106) Calcium Level 8.6 mg/dL (8.7-10.4) Vancomycin Level Trough 15.0 ug/mL (5-10) Differential Total Cells Counted 100.0 (100) Neutrophils % (Manual) 90 (37.0-80.0) Band Neutrophils % (Manual) 0 Lymphocytes % (Manual) 8 (10.0-50.0) Monocytes % (Manual) 0 (0-12) Eosinophils % (Manual) 2 (0-7) Basophils % (Manual) 0 (0.0-2.0) Metamyelocytes % (manual) 0 Myelocytes % (Manual) 0 Promyelocytes % (Manual) 0 Blast Cells % (Manual) 0 Reactive Lymphocytes 0 Platelet Estimate Adequate Magnesium Level 1.5 mg/dL (1.6-2.6) Stool Occult Blood Negative (Negative) Stool Occult Blood Sample #3 (Negative) Stool for White Cells Rare Test 08/05/24 04:32 08/04/24 11:32 08/04/24 06:47 08/04/24 00:07 Total Bilirubin 0.8 mg/dL (0.2-1.0) Aspartate Amino Transferase (AST) 87 U/L (13-40) Alanine Aminotransferase (ALT) 44 U/L (7-40) Alkaline Phosphatase 195 U/L (46-116) Total Protein 5.6 g/dL (5.7-8.2) Albumin 3.1 g/dL (3.2-4.8) Lactic Acid Level 1.9 mmol/L (0.4-2.0) Hepatitis A IgM Antibody Negative Hepatitis B Surface Antigen Negative (Negative) Hepatitis B Core IgM Antibody Negative (Negative) Hepatitis C Antibody Reactive (Negative) HIV (1&2) Antibody Negative (Negative) Red Blood Cell Morphology Normal Urine Color Yellow (Yellow) Urine Clarity Turbid (Clear) Urine pH 5.5 (5.0-9.0) Urine Specific [place] 1.021 (1.001-1.035) Urine Protein 1+ (Negative) Urine Ketones Trace (Negative) Urine Blood 1+ /uL (Negative) Urine Nitrite Negative (Negative) Urine Bilirubin Negative (Negative) Urine Urobilinogen Normal mg/dL (Negative) Urine Leukocyte Esterase 2+ /uL (Negative) Urine RBC 2 /hpf (0 - 3) Urine WBC Clumps Present /hpf (None Seen) Urine Microscopic WBC 60 /HPF (0-3) Urine Squamous Epithelial Cells Few /hpf (<5) Urine Bacteria Few /hpf (None Seen) Urine Hyaline Casts Few /lpf (0 - 2) Urine Granular Casts Mod /lpf (0) Urine Mucus Few (None Seen) Urine Glucose Normal mg/dL (Normal) Urine Opiates Screen Neg (NEGATIVE) Urine Fentanyl Screen Neg (NEGATIVE) Urine Barbiturates Screen Neg (NEGATIVE) Urine Phencyclidine Screen Neg (NEGATIVE) Urine Amphetamines Screen Pos (NEGATIVE) Urine Benzodiazepines Screen Neg (NEGATIVE) Urine Cocaine Screen Neg (NEGATIVE) Urine Cannabinoids Screen Neg (NEGATIVE) Test 08/03/24 23:29 08/03/24 20:17 08/03/24 20:16 Phosphorus Level 5.3 mg/dL (2.4-5.1) Ammonia < 10 umol/L (11-32) Troponin I High Sensitivity 8 ng/L (</=54) Triglycerides Level 94 mg/dL (< 150) Cholesterol Level 67 mg/dL (< 200) LDL Cholesterol 6 mg/dL (< 100) HDL Cholesterol 10 mg/dL (40-59) Lipase 21 U/L (12-53) Vitamin B12 Level 774 pg/mL (211-911) Vitamin D 25-Hydroxy 41.3 ng/mL (30.0-100) Thyroid Stimulating Hormone (TSH) 1.61 uIU/mL (0.55-4.78) Influenza Type A Antigen Negative (Negative) Influenza Type B Antigen Negative (Negative) SARS-CoV-2 Antigen (Rapid) Negative (NEGATIVE) Large Platelets Few Erythrocyte Sedimentation Rate 72 mm/hr (0-20) Prothrombin Time 14.0 sec (9.3-11.8) Prothrombin Time INR 1.36 (0.9-1.15) Activated Partial Thromboplast Time 30.5 SEC (24.5-34.5) Hemoglobin A1c 5.7 % A1C (<5.7) Creatine Kinase 89 U/L (46-171) C-Reactive Protein High Sensitivity > 20.00 mg/dL (<1.0) B-Type Natriuretic Peptide 114.26 pg/mL (0-100) Plasma/Serum Blood Alcohol < 3.0 mg/dL (<10) Other Laboratory Tests 08/10/24 09:50 Brief Hx & Hospital Course: This is a 64-year-old male, very poor historian which does not provide any pertinent history difficult to understand. Patient has past medical history of HI in with no interventional procedures and schizophrenia on no medications. Patient presented to the ED with chief complaint of progressive dyspnea associated with chest pain and nonbloody diarrhea. Per patient he had approximately five episodes of diarrhea per day in the last couple of days. Upon admission, Patient denied fever/chills, shortness of breath, abdominal tenderness, or any other associated symptoms. Initial labs showed a WBC of 27.9, hemoglobin of 13.8 and a creatinine 3.47. Urine drug screen came back positive for amphetamines and liver enzymes and alkaline phosphatase were all elevated. Initial chest x-ray was showing right middle lobe opacities and left upper lobe diffuse opacities consistent with possible multifocal pneumonia. CT scan of the head was grossly unremarkable with no acute intracranial abnormalities. UA was suggesting UTI. Patient was initially started on linezolid and cefepime due to BRIANA. During hospitalization stay, blood cultures came back positive for streptococcal pneumoniae bacteremia which was susceptible to multiple antibiotics. At that time, we discontinue linezolid and cefepime and started the patient on vancomycin since the renal function had improved by that time. We will continue the patient on IV vancomycin and azithromycin. Today, patient was seen and examined at bedside. Patient has no additional concerns or complaints at this time. Patient is currently tolerating room air without complications and no respiratory distress. Patient denies fever/chills, shortness of breath, chest pain or any other complaint. We will discharge the patient home on levofloxacin 750 mg p.o. daily for five additional days. Levofloxacin we will cover for both pneumonia and bacteremia which was susceptible to levofloxacin. We explained to the patient the importance of medication adherence and we sent the patient medications with the pharmacy. We also explained current medical status to his sister. both patient and sister agreed with the plan. ROS Constitutional: Denies weight loss, fever and chills. HEENT: Denies changes in vision and hearing. Respiratory: Denies shortness of breath and cough Cardiovascular: Denies chest discomfort or palpitations GI: Denies abdominal pain, nausea, vomiting and diarrhea. : Denies dysuria and urinary frequency. Musculoskeletal: Denies myalgias and joint pain Skin: Denies rash and pruritus. Neurological: Denies dizziness, headache, vision or hearing problems Physical Examination on day of discharge: General: Patient alert and oriented in person, place and time. Patient following commands. HEENT: Normocephalic, atraumatic, moist mucous membranes Respiratory/pulmonary: There are mild crackles on lung bases but improved compared to admission. no associated crackles or wheezes. currently on room air tolerating w/o complications. Cardiovascular: Normal heart sounds S1 and S2 with no associated murmurs Abdomen: Abdomen nondistended, there is no pain to palpation in any of the abdominal quadrants, no palpable masses. Extremities: There is no peripheral edema present at the lower extremities. Peripheral Pulses: 3+ Radial (R). 3+ Radial (L). 3+ Dorsalis pedis (R). 3+ Dorsalis pedis(L) Skin: No rashes or pruritus, there is no sacral edema present at this time. Neurological: Intact cranial nerves with no focal neurologic deficits Discussed with Dr. Baker Consults/Reason for consult N/A Operations or Procedures EXAM: XY CHEST PORTABLE TECHNIQUE: Single frontal chest radiograph CLINICAL HISTORY: sob COMPARISON: None Findings/Impression: Frontal chest radiograph demonstrates no acute osseous or superficial soft tissue abnormalities. The trachea is midline. The cardiac silhouette and mediastinum are within normal limits. Bilateral upper lung field airspace opacities. No pneumothorax or pleural effusions. Exam: CT AB PEL WO CON-NO ORAL OR IV History: diarrhea, sob Comparison Study: None Contrast: None TECHNIQUE: Multidetector CT of abdomen and pelvis without IV contrast. Radiation Dose Information: CT Dose: CTDI volume is 46.68 mGy. Dose-length product is 1120.21 mGy*cm FINDINGS: lung bases demonstrate paraseptal emphysema possibly early interstitial lung disease there are consolidates with air bronchograms involving the left lingula in the lateral right upper lobe. Heart size is normal. There are few calcifications in the aortic annulus. The esophagus is unremarkable. Spleen appears to be within normal limits for size. Kidneys and adrenals are unremarkable. Gallbladder and liver appear to be unremarkable there are small calcifications seen in the central portion of the prostate I do not see evidence for diverticulitis or for appendicitis liver remains within normal size measures 17.7 cm in span. Patient has a significant dextro scoliosis involving the thoracolumbar spine of approximately 21 degrees. There is disc disease at L4-5 and L5-S1. Also disc disease in the lower thoracic spine.. IMPRESSION: 1. Bilateral pneumonia along with paraseptal emphysema and possibly developing interstitial lung disease EXAM: CT HEAD WITHOUT CONTRAST INDICATION: weak, possible confusion TECHNIQUE: CT of the head without intravenous contrast. Radiation Dose : 1. Head: CT Dose: CTDI volume is 5.07 mGy. Dose-length product is 1120.21 mGy*cm The dose indicators for CT are the volume Computed Tomography (CT) Dose Index (CTDIvol) and the Dose Length Product (DLP), and are measured in units of mGy and mGy-cm, respectively. These indicators are not patient dose, but values generated from the CT scanner acquisition factors. The report includes radiation exposure data for exposures received during this examination. COMPARISON: HEAD WITHOUT CONTRAST on DOS: 09/13/19 FINDINGS: There is no evidence of acute intracranial hemorrhage, extra-axial collection, mass effect, midline shift, herniation or hydrocephalus. The ventricles, sulci and cisterns are age appropriate. The duncan-white differentiation is intact. Patchy periventricular and subcortical white matter hypoattenuation is nonspecific but may be related to small vessel ischemic disease. The visualized paranasal sinuses and mastoid air cells are clear. The surrounding soft tissues and osseous structures are unremarkable. IMPRESSION: 1. No acute intracranial abnormality. INDICATION: R/O biliary dilation or liver abn TECHNIQUE: Multiple real-time sonographic images were obtained of the right upper quadrant. COMPARISON: None FINDINGS: The liver demonstrates heterogeneous echotexture without focal mass lesions. The liver measures 17cm. There is no intrahepatic or extrahepatic ductal dilatation. CBD not visualized. The gallbladder is without evidence of stone or sludge. The gallbladder wall measures 1.3 mm and is within normal limits. The right kidney measures 10 cm. The right kidney is normal in contour, size, and shape. The echogenicity is normal. There is no hydronephrosis. The pancreas is not well visualized due to overlying bowel gas. IMPRESSION: No sonographic evidence of gallstones or acute cholecystitis. Hepatic steatosis/hepatomegaly EXAM: XR Chest, 1 View CLINICAL INDICATION: reeval TECHNIQUE: Frontal view of the chest. COMPARISON: XY CHEST PORTABLE on DOS: 08/03/24, XR Chest dated 08/03/2024 FINDINGS: LUNGS AND PLEURAL SPACES: Stable patchy airspace disease of both lungs. No consolidation. No pneumothorax. HEART: Unremarkable. No cardiomegaly. MEDIASTINUM: Unremarkable. Normal mediastinal contour. BONES/JOINTS: Unremarkable. No acute fracture. OTHER FINDINGS: . IMPRESSION: Stable patchy airspace disease of both lungs. Condition at Discharge: Stable Final Diagnosis/Problems List Acute metabolic/toxic encephalopathy in the setting of sepsis and amphetamine use Sepsis due to Gram-positive/Gram-negative pneumonia, UTI and bacteremia Acute hypoxic respiratory failure due to Gram-positive/Gram-negative bacterial pneumonia Multifocal pneumonia Possible underlying interstitial lung disease Acute gram positive cocci bacteremia Acute UTI BRIANA due to vasomotor nephropathy in the setting of sepsis Acute transaminitis possible in the setting of sepsis Chronic drug abuser Hx of schizophrenia Discharge Disposition: Home Discharge Instruct/Medications Diet: Regular Activity: No Restrictions, As Tolerated Follow Up/Referral: F/U with his PCP in 1 week Medications: Levothyroxine 750mg PO QD for 5 days Trelegy inhaler 1 puff daily Discharge Statement: "Patient was advised to return to the ER or call 911 if any headaches, dizziness, shortness of breath, chest pain, abdominal pain, bleeding, fevers, or worsening of medical condition. Patient was counseled about treatment plan, medications, possible side effects, patientverbalized understanding. All questions were answered to the best of my ability. This discharge took greater then 30 minutes in planning, reviewing documentation, counseling the patient, and discussing with other team members." ASSESSMENT ASSESSMENT Assessment Acute metabolic/toxic encephalopathy in the setting of sepsis and amphetamine use Sepsis due to Gram-positive/Gram-negative pneumonia, UTI and bacteremia Acute hypoxic respiratory failure due to Gram-positive/Gram-negative bacterial pneumonia Multifocal pneumonia Possible underlying interstitial lung disease Acute gram positive cocci bacteremia Acute UTI BRIANA due to vasomotor nephropathy in the setting of sepsis Acute transaminitis possible in the setting of sepsis Chronic drug abuser Hx of schizophrenia Addendum Addendum Addendum I was physically present for the samuels portions of the service provided to patient by THE RESIDENT. I have reviewed the documentation, discussed the case with resident and agree with the resident's documentation except as noted. Also the patient's clinical case was discussed with the patient's nurse. This medical document was created using an electronic medical record system with computerized dictation system. Although this document has been carefully reviewed, there might still be some phonetic and typographical errors. These areas are purely typographical due to imperfections of the software programs, and do not reflect any compromise in the patient's medical care. Late signature. Date of Service: Aug 10, 2024 Billing Provider: DAYTON BAKER MD Common Visit Codes: 64303-SJZ/OBS DISCH DAY >30min GWEN FERNÁNDEZ RESIDENT Aug 10, 2024 13:20 DAYTON BAKER MD Aug 11, 2024 15:35
== END 2024-08-10 19:33 | disposition home or self-care (01) | DRG 720 ==
LOC: ER 20:06 → OVERFLOW 22:54 → TELE-WESTW 08-04 02:44
PROVIDERS: ATTEND Emergency Medicine
DX: A41.50 Gram-negative sepsis, unspecified (principal); J96.21 Acute and chronic respiratory failure with hypoxia; N17.0 Acute kidney failure with tubular necrosis; G92.8 Other toxic encephalopathy; J15.69 Pneumonia due to other Gram-negative bacteria; E46 Unspecified protein-calorie malnutrition; R64 Cachexia; I50.9 Heart failure, unspecified; J15.9 Unspecified bacterial pneumonia; J44.0 Chronic obstructive pulmonary disease with (acute) lower respiratory infection; R65.20 Severe sepsis without septic shock; J44.1 Chronic obstructive pulmonary disease with (acute) exacerbation; N39.0 Urinary tract infection, site not specified; F17.210 Nicotine dependence, cigarettes, uncomplicated; F12.10 Cannabis abuse, uncomplicated; K76.0 Fatty (change of) liver, not elsewhere classified; Z20.822 Contact with and (suspected) exposure to COVID-19; R16.0 Hepatomegaly, not elsewhere classified; R74.01 Elevation of levels of liver transaminase levels; F15.10 Other stimulant abuse, uncomplicated; F20.9 Schizophrenia, unspecified; Z59.00 Homelessness unspecified; Z82.49 Family history of ischemic heart disease and other diseases of the circulatory system; I25.2 Old myocardial infarction; Z99.81 Dependence on supplemental oxygen; Z68.1 Body mass index [BMI] 19.9 or less, adult
CPT/HCPCS: 36415; 70450; 71045; 74176; 76705; 80048; 80053; 80061; 80074; 80202; 80307; 80320; 81001; 82140; 82270; 82306; 82550; 82607; 83036; 83605; 83690; 83735; 83880; 84100; 84443; 84484; 85007; 85025; 85027; 85048; 85610; 85652; 85730; 86141; 86703; 87040; 87045; 87077; 87081; 87086; 87177; 87186; 87426; 87427; 87493; 87804; 93005; 93306; 94640; 96365; 97116; 97163; 97530; 99291; G0378; J2470; J2543

== ENCOUNTER 2024-08-19 16:34 | Emergency (ER) | payer OTHER ==
[~2024-08-19] VITALS: Ht 165.1 cm; Wt 59.0 kg
[2024-08-19 16:34] VITALS: BP 133/78; PULSE 100; RESP 22; TEMP 98; O2SAT 98
[~2024-08-19 16:34] MED LIST changes: -AZITTAB PO; +FLUT1AER3 IN; +LEVO750T40 PO; -METH4PAK PO
--- NOTE | 2024-08-19 19:12 | DVH ---
EXAM: XY R FOOT 3 VIEW XRAY HISTORY: pain COMPARISON: None TECHNIQUE: Three views of the right foot were performed. FINDINGS: No acute fracture or dislocation are identified about the right foot. Severe osteoarthropathy of the right 1st metatarsal phalangeal joint with early hallux valgus deformity. Small ventral calcaneal vinicius d IMPRESSION: 1. Small ventral calcaneal spur 2. 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 No acute fracture or dislocation
--- NOTE | 2024-08-19 19:19 | ED.PDOC ---
Back pain HPI HPI Comments This is a 64-year-old male presents to the ED via ambulance chief complaint right foot pain x3 days patient reports right foot pain increase with ambulating and pressure on the foot bottom aspect right heel reports no known injury. Numbness or weakness. Chief Complaint: Lower Extremity Time Seen by MD: 17:57 Reviewed Notes: Nurses Notes, Medications, Allergies Allergies: Coded Allergies: NO KNOWN ALLERGIES (Unverified , 09/25/13) Home Meds Active Scripts [id number] (Trelegy Ellipta 100-62.5-25 Mcg/INH) 1 Aer Aer, 1 AER IN DAILY for 30 Days, #1 AER Prov:GWEN FERNÁNDEZ RESIDENT 08/10/24 Levofloxacin Hemihydrate (LEVOFLOXACIN) 750 Mg Tab, 1 TAB PO DAILY for 5 Days, #5 TAB Prov:GWEN FERNÁNDEZ RESIDENT 08/10/24 Albuterol Sulfate (VENTOLIN MDI) 90 Mcg Ih, 180 MCG IN Q4HP PRN, #1 INHALER Prov:ORA MONK MD 06/03/23 Information Source: Patient Mode of Arrival: EMS Past Medical History PAST MEDICAL HISTORY: Denies Surgical History: Denies all surgeries Family History Family History: Unknown Social History Smoker: Non-Smoker Alcohol: Denies ETOH Use Drugs: Denies Drug Use Constitutional: denies: chills, diaphoresis, fatigue, fever, malaise, sweats, weakness, others EENTM: denies: blurred vision, double vision, ear bleeding, ear discharge, ear drainage, ear pain, ear ringing, eye pain, eye redness, hearing loss, mouth pain, mouth swelling, nasal discharge, nose bleeding, nose congestion, nose pain, photophobia, tearing, throat pain, throat swelling, voice changes, others Respiratory: denies: cough, hemoptysis, orthopnea, SOB at rest, shortness of breath, SOB with excertion, stridor, wheezing, others Cardiovascular: denies: chest pain, dizzy spells, diaphoresis, Dyspnea on exertion, edema, irregular heart beat, left arm pain, lightheadedness, palpitations, PND, syncope, others Gastrointestinal: denies: abdomen distended, abdominal pain, blood streaked bowels, constipated, diarrhea, dysphagia, difficulty swallowing, hematemesis, melena, nausea, poor appetite, poor fluid intake, rectal bleeding, rectal pain, vomiting, others Genitourinary: denies: burning, dysuria, flank pain, frequency, hematuria, incontinence, penile discharge, penile sore, pain, testicle pain, testicle swelling, urgency, others Neurological: denies: dizziness, fainting, headache, left sided numbness, left sided weakness, numbness, paresthesia, pre-existing deficit, right sided numbness, right sided weakness, seizure, speech problems, tingling, tremors, weakness, others Musculoskeletal: reports: others (Right foot heel pain); denies: back pain, gout, joint pain, joint swelling, muscle pain, muscle stiffness, neck pain Integumetry: denies: bruises, change in color, change in hair/nails, dryness, laceration, lesions, lumps, rash, wounds, others Allergic/Immunocompromised: denies: Difficulty Healing, Frequent Infections, Hives, Itching, others Hematologic/Lymphatic: denies: anemia, blood clots, easy bleeding, easy bruising, swollen glands, others Endocrine: denies: excessive hunger, excessive sweating, excessive thirst, excessive urination, flushing, intolerance to cold, intolerance to heat, unexplained weight gain, unexplained weight loss, others Psychiatric: denies: anxiety, bipolar disorder, depression, hopeless, panic disorder, schizophrenia, sleepless, suicidal, others Physical Exam General Appearance: No Apparent Distress, Normal HEENT: Pharynx Normal Neck: Full Range of Motion, Non-Tender Respiratory: Lungs Clear, No Respiratory Distress, Normal Breath Sounds Cardiovascular: No Edema, No JVD, No Murmur, No Gallop, Normal Peripheral Pulses, Regular Rate/Rhythm Breast Exam: Deferred Gastrointestinal: No Organomegaly, Non Tender, No Pulsatile Mass, Normal Bowel Sounds, Soft Genitalia: Deferred Pelvic: Deferred Rectal: Deferred Extremities: Normal capillary refill, Normal inspection, Normal range of motio n, Non-tender, No pedal edema Musculoskeletal : Location: Right Extremity Location: Foot (Moderate tenderness palpated over right foot heel aspect trace edema no noted lesions abrasions or lacerations strength sensory motion intact positive pedal pulse.) Apperance: Normal Neurologic: Alert, associate product manager II-XII 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 Was a procedure done?: No Back Pain Differential Dx Differential Diagnosis: Fracture, Musculoskeletal Pain X-Ray, Labs, Meds, VS Vital Signs Date Time Temp Pulse Resp B/P (MAP) Pulse Ox O2 Delivery O2 Flow Rate FiO2 08/19/24 16:34 98.0 100 22 133/78 (96) 98 98.0 08/19/24 16:34 100 22 08/19/24 16:34 98.0 100 22 133/78 (96) 98 98.0 Current Medications Medications (Trade) Dose Ordered Sig/Elvia Route Start Time Stop Time Status Last Admin Acetaminophen/ Hydrocodone Bitart (Bab[place] 5/325MG Tab) 1 tab ONCE ONCE PO 08/19/24 19:30 08/19/24 19:31 DC 08/19/24 19:32 X-Ray, Labs, Meds, VS Comment IMPRESSION: 1. Small ventral calcaneal spur 2. 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 No acute fracture or dislocation Likely secondary to calcaneal spur. And patient has chronic history of valgus deformity. He was given [place] 5 mg p.o. reports improvement in pain and function requesting discharge at this time. Advised to follow up with his PCP in 2-3 days as necessary consider further imaging such as MRI if symptoms persist. ER return precautions given patient indicates understanding and agrees with discharge plan of care. Time of 1ST Reevaluation: 21:14 Reevaluation 1ST: Improved Patient Education/Counseling: Diagnosis, Treatment, Prognosis, Need For Follow Up Family Education/Counseling: No Family Present Departure 1 Departure Time of Disposition: 19:18 Impression: Primary Impression: Calcaneal spur of foot Qualified Codes: M77.30 - Calcaneal spur, unspecified foot Disposition: 01 HOME / SELF CARE / HOMELESS Condition: Stable Discharged With: Self Critical Care Note Critical Care Time?: No Stability Stability form required: MISTI Higgins August 19, 2024 19:19
[2024-08-19] MEDS: HYDROcodone-ACET 5/325MG TAB PO ONE (19:32)
== END 2024-08-19 19:33 | disposition home or self-care (01) ==
LOC: EDBD 16:34 → ER 16:34 → EDUNIT# 16:34 → ER 19:33
DX: M77.31 Calcaneal spur, right foot (principal)
CPT/HCPCS: 73630

== ENCOUNTER 2024-08-26 18:18 | Emergency (ER) | payer OTHER ==
[~2024-08-26] VITALS: Ht 165.1 cm; Wt 54.5 kg
--- NOTE | 2024-08-26 19:52 | ED.PDOC ---
Musculoskeletal HPI Comments 64 year old male presents to the ED with a chief complaint of RT foot swelling onset 2 weeks. Patient states he has been experiencing RT foot pain and swelling for the past 2 weeks. Patient was seen in this ED on 08/19/24 due to RT foot pain, was discharged with a Dx of Calcaneal spur of RT foot, patient has been taking Tylenol/Motrin for pain with no relief of symptoms. Patient noticed RT foot is more swollen, painful, burning sensation, toes are turning blue, and top of foot is red. Patient is not able to walk or apply pressure to RT foot due to pain. Denies chest pain, shortness of breath, nausea, vomiting, dizziness, fevers. No other symptoms or modifying factors present at this time. Time Seen by MD: 19:40 Primary Care Provider: NONE Reviewed Notes: Medications, Allergies Allergies: Coded Allergies: NO KNOWN ALLERGIES (Unverified , 09/25/13) Home Meds Active Scripts Giaapesjvdy-Xxcolzjllonk-Ydefo (Trelegy Ellipta 100-62.5-25 Mcg/INH) 1 Aer Aer, 1 AER IN DAILY for 30 Days, #1 AER Prov:GWEN FERNÁNDEZ RESIDENT 08/10/24 Levofloxacin Hemihydrate (LEVOFLOXACIN) 750 Mg Tab, 1 TAB PO DAILY for 5 Days, #5 TAB Prov:GWEN FERNÁNDEZ RESIDENT 08/10/24 Albuterol Sulfate (VENTOLIN MDI) 90 Mcg Ih, 180 MCG IN Q4HP PRN, #1 INHALER Prov:ORA MONK MD 06/03/23 Information Source: Patient, Relative Mode of Arrival: Ambulatory Location: Right Extremity Location: Foot Timing: Weeks Prehospital treatment: Pain Meds Severity: Moderate Able to Move Extremity: Yes Bear Weight: No Pain: Moderate Mechanism: Spontaneous Circumstances: Spontaneous Onset of Symptoms: Spontaneous Symptoms: Swelling, Pain, Erythema DVT Risk Factors: NONE Associated signs and symptoms: Foot pain Past Medical History PAST MEDICAL HISTORY: Denies Surgical History: Denies all surgeries Family History Family History: Unknown Social History Smoker: Non-Smoker Alcohol: Denies ETOH Use Drugs: Denies Drug Use Lives In: Home Constitutional: denies: chills, diaphoresis, fatigue, fever, malaise, sweats, weakness, others EENTM: denies: blurred vision, double vision, ear bleeding, ear discharge, ear drainage, ear pain, ear ringing, eye pain, eye redness, hearing loss, mouth pain, mouth swelling, nasal discharge, nose bleeding, nose congestion, nose pain, photophobia, tearing, throat pain, throat swelling, voice changes, others Respiratory: denies: cough, hemoptysis, orthopnea, SOB at rest, shortness of breath, SOB with excertion, stridor, wheezing, others Cardiovascular: denies: chest pain, dizzy spells, diaphoresis, Dyspnea on exertion, edema, irregular heart beat, left arm pain, lightheadedness, palpitations, PND, syncope, others Gastrointestinal: denies: abdomen distended, abdominal pain, blood streaked bowels, constipated, diarrhea, dysphagia, difficulty swallowing, hematemesis, melena, nausea, poor appetite, poor fluid intake, rectal bleeding, rectal pain, vomiting, others Genitourinary: denies: burning, dysuria, flank pain, frequency, hematuria, incontinence, penile discharge, penile sore, pain, testicle pain, testicle swelling, urgency, others Neurological: denies: dizziness, fainting, headache, left sided numbness, left sided weakness, numbness, paresthesia, pre-existing deficit, right sided numbness, right sided weakness, seizure, speech problems, tingling, tremors, weakness, others Musculoskeletal: reports: others (RT foot pain, swelling, ); denies: back pain, gout, joint pain, joint swelling, muscle pain, muscle stiffness, neck pain Integumetry: denies: bruises, change in color, change in hair/nails, dryness, laceration, lesions, lumps, rash, wounds, others Allergic/Immunocompromised: denies: Difficulty Healing, Frequent Infections, Hives, Itching, others Hematologic/Lymphatic: denies: anemia, blood clots, easy bleeding, easy bruising, swollen glands, others Endocrine: denies: excessive hunger, excessive sweating, excessive thirst, excessive urination, flushing, intolerance to cold, intolerance to heat, unexplained weight gain, unexplained weight loss, others Psychiatric: denies: anxiety, bipolar disorder, depression, hopeless, panic disorder, schizophrenia, sleepless, suicidal, others All Other Systems: Reviewed and Negative Physical Exam General Appearance: No Apparent Distress, Normal HEENT: Normal ENT Inspection, Pharynx Normal, TMs Normal Neck: Full Range of Motion, Non-Tender, Normal, Normal Inspection Respiratory: Chest Non-Tender, Lungs Clear, No Accessory Muscle Use, No Respiratory Distress, Normal Breath Sounds Cardiovascular: No Edema, No JVD, No Murmur, No Gallop, Normal Peripheral Pulses, Regular Rate/Rhythm Breast Exam: Deferred Gastrointestinal: No Organomegaly, Non Tender, No Pulsatile Mass, Normal Bowel Sounds, Soft Genitalia: Deferred Pelvic: Deferred Rectal: Deferred Extremities: No calf tenderness, Normal capillary refill, Normal inspection, Normal range of motion, Non-tender, No pedal edema Musculoskeletal : Apperance: Normal Neurologic: Alert, 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 Was a procedure done?: No Differential Diagnosis EXT Differential Diagnosis: Cellulitis, CHF, Deep Vein Thrombosis, Compartment Syndrome, Myocardial Infarction, Contusion, Strain, Septic, Other X-Ray, Labs, Meds, VS Vital Signs Date Time Temp Pulse Resp B/P (MAP) Pulse Ox O2 Delivery O2 Flow Rate FiO2 08/26/24 23:57 90 36 136/73 08/26/24 23:11 147/100 08/26/24 21:50 98.6 120 12 133/84 (100) 98 98.6 08/26/24 19:33 98.2 120 18 134/85 (101) 95 98.2 Lab Test 08/26/24 19:57 Range/Units White Blood Count 19.6 H 4.4-10.8 10^3/uL Red Blood Count 4.79 4.5-5.90 10^6/uL Hemoglobin 13.3 L 13.5-17.5 g/dL Hematocrit 39.4 L 41.0-53.0 % Mean Corpuscular Volume 82.1 80.0-100.0 fL Mean Corpuscular Hemoglobin 27.7 L 28.0-32.0 pg Mean Corpuscular Hemoglobin Concent 33.7 32.0-36.0 g/dL Red Cell Distribution Width 14.2 11.8-14.3 % Platelet Count 765 *H 140-450 10^3/uL Mean Platelet Volume 7.5 6.9-10.8 fL Neutrophils (%) (Auto) 83.7 H 37.0-80.0 % Lymphocytes (%) (Auto) 8.9 L 10.0-50.0 % Monocytes (%) (Auto) 6.0 0.0-12.0 % Eosinophils (%) (Auto) 0.6 0.0-7.0 % Basophils (%) (Auto) 0.8 0.0-2.0 % Neutrophils # (Auto) 16.4 H 1.6-8.6 10 ^3/uL Lymphocytes # (Auto) 1.7 0.4-5.4 10 ^3/uL Monocytes # (Auto) 1.2 0-1.3 10 ^3/uL Eosinophils # (Auto) 0.1 0-0.8 10 ^3/uL Basophils # (Auto) 0.2 0-0.2 10 ^3/uL Nucleated Red Blood Cells 0.0 % Platelet Estimate Increased Anisocytosis (manual) Slight Prothrombin Time 15.1 H 9.3-11.8 sec Prothrombin Time INR 1.48 H 0.9-1.15 Activated Partial Thromboplast Time 33.0 24.5-34.5 SEC Sodium Level 131 L 136-145 mmol/L Potassium Level 3.1 L 3.5-5.1 mmol/L Chloride Level 94 L 98-107 mmol/L Carbon Dioxide Level 27 20-31 mmol/L Anion Gap 10 5-15 Blood Urea Nitrogen 12 9-23 mg/dL Creatinine 0.89 0.700-1.30 mg/dL Glomerular Filtration Rate Calc 97 >90 mL/min BUN/Creatinine Ratio 13.5 10.0-20.0 Serum Glucose 144 H 74-106 mg/dL Calcium Level 8.9 8.7-10.4 mg/dL Total Bilirubin 0.4 0.2-1.0 mg/dL Aspartate Amino Transferase (AST) 59 H 13-40 U/L Alanine Aminotransferase (ALT) 43 H 7-40 U/L Alkaline Phosphatase 82 46-116 U/L Total Protein 7.7 5.7-8.2 g/dL Albumin 3.9 3.2-4.8 g/dL Current Medications Medications (Trade) Dose Ordered Sig/Elvia Route Start Time Stop Time Status Last Admin Sodium Chloride 1,000 ml @ 1,000 mls/hr Q1H ONCE IV 08/26/24 20:00 08/26/24 20:59 DC 08/26/24 23:12 Fentanyl Citrate 25 mcg ONCE ONCE IV 08/26/24 20:00 08/26/24 20:01 DC 08/26/24 23:11 Morphine Sulfate 4 mg ONCE ONCE IV 08/27/24 00:00 08/27/24 00:03 DC 08/26/24 23:57 Ondansetron HCl (Zofran) 4 mg ONCE ONCE IV 08/27/24 00:00 08/27/24 00:03 DC 08/26/24 23:57 [place] [id number] Ph: [phone] DIAGNOSTIC IMAGING Diagnostic Imaging Report : [id number] Signed PATIENT: VIMAL FINNEGAN ACCT: [id number] UNIT: [id number] : 1960 LOC: ER ROOM / BED: / AGE / SEX: 64 / M ADM STATUS: REG ER SERVICE 45 ORDERING PHYSICIAN: CHANTELLE GUERRERO MD PROCEDURE(s): RLEAD - Rt Low Ext Art Duplex REASON: right foot cyanosis, no pulse, pain ORDER NUMBER(s): [id number], ACCESSION NUMBER(s): [id number] US Rt Low Ext Art Duplex HISTORY: right foot cyanosis, no pulse, pain COMPARISON: None TECHNIQUE: The right l lower extremity arteries were examined with grayscale imaging, color Doppler, and spectral waveform analysis. FINDINGS: The right lower extremity arteries are normal in caliber with no significant plaque or aneurysm. The following arterial peak systolic velocities (cm/sec) and waveforms were obtained: Right Common femoral artery: Triphasic; 72 cm/s Profunda femoris artery: Triphasic; 66 cm/s Upper SFA: Triphasic; 89 cm/s Mid SFA: Triphasic; 105 cm/s Low SFA: Triphasic 107 cm/s Popliteal artery: Triphasic; 90 cm/s Posterior tibial artery: Monophasic; 35 cm/s Dorsalis pedis artery: ; 0 cm/s IMPRESSION: 1. Triphasic waveform to the knee and monophasic waveform in the right posterior tibial artery. The right dorsalis pedis shows no flow. ATED BY: FRANDY AVILES Jr., DO DICTATED DATE/TIME: 08/26/242056 SIGNED BY: FRANDY AVILES Jr., SIGNED DATE/TIME: 08/26/242056 CC: Time of 1ST Reevaluation: 20:10 Reevaluation 1ST: Unchanged Consultation: Other (I discussed the case with Dr. Funes vascular surgery at [facility] and emergency Dr. Hubbard accepts patient for transfer) Patient Education/Counseling: Diagnosis, Treatment, Prognosis Family Education/Counseling: Diagnosis, Treatment, Prognosis Additional Information The following tests were ordered, and results were reviewed by me: CBC, CMP, PTPTT, XY CHEST, US RT LOW EXT ART DUPLEX, CT ANGIO R LOWER EXT, EKG Additional Information was gathered from interviewing the following independent historians: relative I reviewed and agreed with the following test results read by other providers: XY CHEST, US RT LOW EXT ART DUPLEX, CT ANGIO R LOWER EXT I discussed treatment and results with medical personnel and: patient, relative Comprehensive systems review obtained and negative except for what is stated in the HPI. Departure 1 Departure Time of Disposition: 22:58 Impression: Primary Impression: Arterial occlusion, lower extremity Disposition: 63 [facility] Condition: Guarded Discharged With: Self Comments Right Foot Pain, Swelling, and Cyanosis Chief Complaint: Right foot pain and swelling with cyanosis History of Present Illness: 64-year-old male presents with progressive right foot pain and swelling over the past two weeks. Patient reports worsening symptoms over the last couple of days with development of bluish discoloration of his toes. He also notes new onset loss of sensation in the distal foot. These symptoms are concerning for acute arterial insufficiency. Review of Systems: Cardiovascular: Right foot pain, swelling, cyanosis Neurological: Decreased sensation in right distal foot All other systems reviewed and negative Physical Exam: Right Lower Extremity: - Significant edema of the entire right foot - Cyanosis of the toes - Dorsalis pedis pulse not palpable - Decreased sensation in distal foot Lab Results: No laboratory studies documented Imaging and Other Relevant Results: Arterial Ultrasound of Right Lower Extremity: - Triphasic flow in upper leg vessels - Monophasic flow in right posterior tibial artery - No flow detected in right dorsalis pedis artery - Findings consistent with arterial occlusion Medical Decision Making: Summary Statement: 64-year-old male presenting with progressive right foot pain, swelling, and cyanosis with evidence of arterial occlusion on ultrasound requiring urgent vascular surgery evaluation. Problem List: 1. Acute arterial insufficiency of right foot 2. Right foot cyanosis 3. Sensory loss in right foot Differential Diagnosis: 1. Acute arterial occlusion 2. Arterial embolism 3. Arterial thrombosis 4. Peripheral vascular disease 5. Acute limb ischemia ED Course: Patient evaluated with arterial ultrasound confirming occlusion. Transfer initiated for higher level of care with vascular surgery services. Assessment and Plan: 1. Acute Arterial Insufficiency of Right Foot: - Findings consistent with acute arterial occlusion requiring immediate intervention - Transfer arranged to facility with vascular surgery capabilities - Time-sensitive condition requiring urgent revascularization to prevent tissue loss - Will require close monitoring during transfer 2. Disposition: - Transfer to higher level of care facility with vascular surgery services Billing Information: ICD-10: I74.3 - Embolism and thrombosis of arteries of lower extremities ICD-10: R20.8 - Other disturbances of skin sensation ICD-10: R23.1 - Pallor and cyanosis Critical Care Note Critical Care Time?: Yes (35 min-critical care time only) Critical care comment: Total critical care time: Approximately 36 minutes Due to a high probability of clinically significant, life threatening deterioration, the patient required my highest level of preparedness to intervene emergently and I personally spent this critical care time directly and personally managing the patient. This critical care time included obtaining a history; examining the patient; pulse oximetry; ordering and review of studies; arranging urgent treatment with development of a management plan; evaluation of patient's response to treatment; frequent reassessment; and, discussions with other providers. This critical care time was performed to assess and manage the high probability of imminent, life-threatening deterioration that could result in multi-organ failure. It was exclusive of separately billable procedures and treating other patients. Stability Stability form required: No I personally scribed for CHANTELLE GUERRERO MD ([email or web address]) on 08/26/24 at 19:52. Electronically submitted by Alana Cobos ([email or web address]). I personally scribed for CHANTELLE GUERRERO MD ([email or web address]) on 08/26/24 at 19:53. Electronically submitted by Alana Cobos ([email or web address]). I personally scribed for CHANTELLE GUERRERO MD ([email or web address]) on 08/26/24 at 22:01. Electronically submitted by Alana Cobos ([email or web address]). CHANTELLE GUERRERO MD August 26, 2024 19:52
[2024-08-26 20:10] LABS: Basophils # (auto) 0.2 10 ^3/uL (0-0.2); Eosinophils # (auto) 0.1 10 ^3/uL (0-0.8); Eosinophils % (auto) 0.6 % (0.0-7.0); Mean Corpuscular Volume 82.1 fL (80.0-100.0); Monocytes # (auto) 1.2 10 ^3/uL (0-1.3)
[2024-08-26 20:11] LABS: Basophils % (auto) 0.8 % (0.0-2.0); Hematocrit 39.4 % (41.0-53.0); Hemoglobin 13.3 g/dL (13.5-17.5); Lymphocytes # (auto) 1.7 10 ^3/uL (0.4-5.4); Lymphocytes % (auto) 8.9 % (10.0-50.0); Mean Corpuscular Hemoglobin 27.7 pg (28.0-32.0); Mean Corpuscular Hgb Conc. 33.7 g/dL (32.0-36.0); Neutrophils # (auto) 16.4 10 ^3/uL (1.6-8.6); Neutrophils % (auto) 83.7 % (37.0-80.0); Red Blood Cells 4.79 10^6/uL (4.5-5.90); Red Cell Distribution Width 14.2 % (11.8-14.3); White Blood Cell 19.6 10^3/uL (4.4-10.8)
[2024-08-26 20:27] LABS: INR 1.48 (0.9-1.15); Prothrombin Time 15.1 sec (9.3-11.8)
[2024-08-26 20:29] LABS: Platelet Count (auto) 765 10^3/uL (140-450)
[2024-08-26 20:48] LABS: Albumin 3.9 g/dL (3.2-4.8); Alkaline Phosphatase 82 U/L (46-116); Anion Gap 10 (5-15); BUN/Creatinine Ratio 13.5 (10.0-20.0); Bilirubin, Total 0.4 mg/dL (0.2-1.0); Blood Urea Nitrogen 12 mg/dL (9-23); Calcium 8.9 mg/dL (8.7-10.4); Carbon Dioxide 27 mmol/L (20-31); Total Protein 7.7 g/dL (5.7-8.2)
--- NOTE | 2024-08-26 21:00 | DVH ---
US Rt Low Ext Art Duplex HISTORY: right foot cyanosis, no pulse, pain COMPARISON: None TECHNIQUE: The right l lower extremity arteries were examined with grayscale imaging, color Doppler, and spectral waveform analysis. FINDINGS: The right lower extremity arteries are normal in caliber with no significant plaque or aneurysm. The following arterial peak systolic velocities (cm/sec) and waveforms were obtained: Right Common femoral artery: Triphasic; 72 cm/s Profunda femoris artery: Triphasic; 66 cm/s Upper SFA: Triphasic; 89 cm/s Mid SFA: Triphasic; 105 cm/s Low SFA: Triphasic 107 cm/s Popliteal artery: Triphasic; 90 cm/s Posterior tibial artery: Monophasic; 35 cm/s Dorsalis pedis artery: ; 0 cm/s IMPRESSION: 1. Triphasic waveform to the knee and monophasic waveform in the right posterior tibial artery. The r ight dorsalis pedis shows no flow.
[2024-08-26 21:17] LABS: Alanine Aminotransferase 43 U/L (7-40); Aspartate Aminotransferase 59 U/L (13-40); Chloride 94 mmol/L (98-107); Glucose 144 mg/dL (74-106); Potassium 3.1 mmol/L (3.5-5.1); Sodium 131 mmol/L (136-145)
[2024-08-26 21:48] LABS: Anisocytosis Slight; Platelet Estimate Increased
[2024-08-26 22:28] VITALS: PULSE 107; RESP 28; O2SAT 94
[2024-08-26] MEDS: fentaNYL CITRATE 100 MCG/2 ML VL IV ONE (23:11)
[2024-08-26] MEDS: SODIUM CHLORIDE 0.9% 1,000 ML IV ONE (23:12)
[2024-08-26] MEDS: ONDANSETRON HCL 4 MG/2 ML VIAL IV ONE (23:57)
[2024-08-26] MEDS: MORPHINE SULFATE 4 MG/ML SYR/VIAL IV ONE (23:57)
[2024-08-27] MEDS ORDERED: HEPARIN DRIP/D5W 100UNITS/ML 250 ML IV SCH
[2024-08-27] MEDS: HEPARIN SODIUM (PORCINE) 5000 UNITS/ML 1ML VIAL IV ONE (00:10)
[2024-08-27] MEDS: HEPARIN DRIP/D5W 100UNITS/ML 250 ML IV SCH (00:36)
[2024-08-27] MEDS: MORPHINE SULFATE 4 MG/ML SYR/VIAL IV ONE ×2 (01:25→01:48)
[2024-08-27] MEDS: ONDANSETRON HCL 4 MG/2 ML VIAL IV ONE ×2 (01:26→01:49)
[2024-08-27 01:42] VITALS: TEMP 99.5; O2SAT 96
[2024-08-27 01:48] VITALS: BP 149/82; PULSE 89; RESP 22
== END 2024-08-27 02:04 | disposition short-term general hospital (02) ==
LOC: ER 18:18
DX: I70.201 Unspecified atherosclerosis of native arteries of extremities, right leg (principal); Z79.899 Other long term (current) drug therapy
CPT/HCPCS: 36415; 80053; 85025; 85610; 85730; 93926; 96361; 96365; 96375; 96376; 99285; J1644; J2270; J2405; J3010; J7030